=== PATIENT | male | born 1935 | race Caucasian/White ===

== ENCOUNTER 2017-11-13 17:59 | Emergency (ER) | payer MEDICARE, OTHER ==
[2017-11-13 18:15] VITALS: BP 162/79
--- NOTE | 2017-11-13 18:30 | UC ---
Skin Complaint HPI - HPI Summary HPI Summary: Patient states he has been having spontaneous nose bleeds for several weeks, with dripping blood, which respond to normal saline drops. He states also that he had a pimple in his neck which he scratched and has been bleeding recurrently. States that , who is accompanying him, has been changing the dressing but it has soaked the back of his shirt three times since this started. He is only taking aspirin. He states his PCP indicated it but there is no history of TIA, Afib, hypercoagulable states, CAD or stroke. 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 Onset/Duration: Sudden Onset, Lasting Days Skin Exposure Onset/Duration: Minutes Ago Timing: Intermittent Episodes Lasting: - several minutes Onset Severity: Moderate Current Severity: Moderate Pain Intensity: 0 Location: Discrete, Nose, Other - neck Aggravating Factor(s): Nothing Alleviating Factor(s): Other - compressive dressing Associated Signs & Symptoms: Positive: Negative - Allergy/Home Medications Allergies/Adverse Reactions: Allergies Allergy/AdvReac Type Severity Reaction Status Date / Time No Known Allergies Allergy Verified 11/13/17 18:15 Review of Systems Constitutional: Negative Skin: Other - bleeding pimple ENT: Epistaxis All Other Systems Reviewed And Are Negative: Yes PMH/Surg Hx/FS Hx/Imm Hx Previously Healthy: Yes - Surgical History Surgical History: Yes Surgery Procedure, Year, and Place: APPENDECTOMY-02/1969 - Social History Alcohol Use: Daily Alcohol Amount: 1 GLASS OF WINE AND 1 GLASS OF BEER DAILY Substance Use Type: None Smoking Status (MU): Never Smoked Tobacco Physical Exam Triage Information Reviewed: Yes Appearance: Well-Appearing, No Pain Distress, Well-Nourished Vital Signs: Initial Vital Signs Temp 97.5 F 11/13/17 18:08 Pulse 68 11/13/17 18:08 Resp 16 11/13/17 18:08 BP 162/79 11/13/17 18:08 Pulse Ox 97 11/13/17 18:08 Vital Signs Reviewed: Yes Eyes: Positive: Conjunctiva Clear ENT: Positive: Hearing grossly normal, Pharynx normal, TMs normal, Uvula midline - no nasal masses, blood vessels or blood, no discharge Neck: Positive: Supple, Nontender, No Lymphadenopathy Respiratory: Positive: Chest non-tender, Lungs clear, Normal breath sounds, No respiratory distress Cardiovascular: Positive: RRR, No Murmur, Pulses Normal, Brisk Capillary Refill Abdomen Description: Positive: Nontender, No Organomegaly, Soft Bowel Sounds: Positive: Present Skin Exam: Other - bleeding skin lesion on dorsum of right neck which responds to compression hemostasis Course/Dx - Course Course Of Treatment: patient instructed to stop aspirin, CBC, PT/PTT and comprehensive panel where drawn, will follow up results and f/u with PCP - Diagnoses Provider Diagnoses: Skin lesion. History of Epistaxis. Bleeding diathesis Discharge - Sign-Out/Discharge Documenting (check all that apply): Discharge - Discharge Plan Condition: Stable Disposition: HOME Patient Education Materials: Nosebleed (ED), Bleeding Disorders (ED) Referrals: Celestine Rubio MD [Primary Care Provider] - - Billing Disposition and Condition Condition: STABLE Disposition: HOME
[2017-11-14 13:26] LABS: ABS Basophils 0 10^3/ul (0-0.2); ABS Eosinophils 0.1 10^3/ul (0-0.6); ABS Monocytes 0.4 10^3/ul (0-0.8); ABS Nucleated RBC 0 10^3/ul; Eosinophil % 2.6 % (0-6); Hematocrit 40 % (42-52); Hemoglobin 14.3 g/dl (14.0-18.0); Mean Corpuscular HGB Conc 35 g/dl (31-36); Mean Corpuscular Hemoglobin 33 pg (27-31); Mean Corpuscular Volume 94 fL (80-94); Mean Platelet Volume 7.4 um3 (7.4-10.4); Nucleated Red Blood Cells % 0.1; Platelet Count 224 10^3/ul (150-450); Red Blood Count 4.28 10^6/ul (4.0-5.4); Red Cell Distribution Width 15 % (10.5-15); White Blood Count 5.5 10^3/ul (3.5-10.8)
[2017-11-14 13:34] LABS: INR 0.8 (0.77-1.02)
[2017-11-14 13:36] LABS: EGFR Non-African American 74.6 (>60)
== END 2017-11-13 19:11 | disposition home or self-care (01) ==
LOC: UCEAST 17:59
DX: L98.9 Disorder of the skin and subcutaneous tissue, unspecified (principal); D69.9 Hemorrhagic condition, unspecified; R04.0 Epistaxis; Z79.82 Long term (current) use of aspirin
CPT/HCPCS: 36415; 80053; 85025; 85610; 99212; G0463

== ENCOUNTER 2019-05-04 10:53 | Inpatient (IN) | payer MEDICARE, OTHER ==
--- OUTSIDE RECORDS SUMMARY | 2019-05-04 11:05 | XMS REPORT | Continuity of Care Document ---
:1935 External Reference #:[id number] Author Name Walt Christensen M.D. (transmitted by agent of provider Louisa Washington ) Address [address], [place] [address] Care Team Providers Name Role Phone Celestine Rubio MD - Endocrinology, Care Team Information Plant [employer] Diabetes & Metabolism Problems Active Problems Provider Date Muscle weakness Walt Christensen M.D. Onset: 07/29/2018 Altered mental status Walt Christensen M.D. Onset: 07/29/2018 Amnesia Walt Christensen M.D. Onset: 07/29/2018 Social History Type Date Description Comments Sex Unknown Tobacco Use Start: Unknown Never Smoked Cigarettes Smoking Status Reviewed: 04/03/19 Never Smoked Cigarettes ETOH Use Occasionally consumes alcohol Tobacco Use Start: Unknown Patient has never smoked Recreational Drug Use Denies Drug Use Allergies, Adverse Reactions, Alerts Description No Known Drug Allergies Medications Active Medications SIG Qnty Indications Ordering Provider Date Donepezil HCL 1 by mouth every 30tabs Walt Christensen, 10mg day M.D. 9 Tablets Tylenol 2 tablets every 4 150caps Koko Mckeon, 325mg hours as needed for N.P. 0 Capsules pain Cyanocobalamin Inject 1 mL every Unknown week by 0 1000mcg/ML Solution intramuscular route. Immunizations Description No Information Available Vital Signs Date Vital Result Comment 04/03/2019 11:51am Height 68 inches 5'8" Weight 140.00 lb Heart Rate 74 /min BP Systolic 118 mmHg BP Diastolic 82 mmHg BMI (Body Mass Index) 21.3 kg/m2 11/04/2018 8:51am Height 68 inches 5'8" Weight 150.00 lb Heart Rate 74 /min BP Systolic 136 mmHg BP Diastolic 82 mmHg BMI (Body Mass Index) 22.8 kg/m2 Results Description No Information Available Procedures Description No Information Available Medical Devices Description No Information Available Encounters Type Date Location Provider Dx Diagnosis Office Visit 11/04/2018 [facility] Humberto Barr1.82 Altered mental 8:45a [facility] status, unspecified R41.3 Other amnesia M62.81 Muscle weakness (generalized) Assessments Date Code Description Provider 04/03/2019 [email or web address] Other amnesia Walt Christensen M.D. 11/04/2018 R41.82 Altered mental status, unspecified Walt Christensen M.D. 11/04/2018 R41.3 Other amnesia Walt Christensen M.D. 11/04/2018 M62.81 Muscle weakness (generalized) Walt Christensen M.D. Plan of Treatment Future Appointment(s):05/30/2019 9:30 am - Koko Mckeon N.P. at [facility]04/03/2019 - Walt Christensen M.D.R41.3 Other amnesiaFollow up:Follow up in 2 months with Saleem. Functional Status Description No Information Available Mental Status Description No Information Available Referrals Description No Information Available
--- NOTE | 2019-05-04 11:24 | ED ---
Adult Trauma - HPI Summary HPI Summary: Patient is a 83 y/o M presenting to [facility] via EMS with caregiver and for fall and AMS. EMS had reported that the patient had an unwitnessed fall earlier this morning and had stated that there were concerns that the patient had visual disturbances and left-sided gazing. Caregiver in the room states that the patient has appeared to have increased confusion since last evening, 05/03/19 , around . Caregiver reports that the patient has some memory loss and slight confusion at baseline, but states that the patient had been unable to walk without assistance, identify and caregiver, and was confused how to perform basic tasks such as eating. In the room, patient denies CP, SOB, RECINOS. He claims no changes to vision. Patient is not on any blood thinners. On triage, pain is denied, nothing is noted to aggravate/alleviate Sx. Home medications and allergies are reviewed. - History of Current Complaint Chief Complaint: EDFall Stated Complaint: FALL W/VISION CHANGES PER EMS Time Seen by Provider: 05/04/19 10:56 Hx Obtained From: Patient, Family/Revenue Officer, EMS Mechanism of Injury: Fall Loss of Consciousness: unsure - unwitnessed fall Onset/Duration: Started Days Ago - confusion Current Severity: None Pain Intensity: 0 Pain Scale Used: 0-10 Numeric Aggravating Factor(s): Nothing Alleviating Factor(s): Nothing Associated Signs & Symptoms: Positive: Other: - positive - AMS, visual disturbance, confusion, left-sided gaze; negative - RECINOS. Negative: SOB, Chest Pain - Allergy/Home Medications Allergies/Adverse Reactions: Allergies Allergy/AdvReac Type Severity Reaction Status Date / Time No Known Allergies Allergy Verified 05/04/19 11:07 Home Medications: Home Medications Acetaminophen [Acetaminophen Extra Strength] 1 tab PO BID 05/04/19 [History Confirmed 05/04/19] Acetaminophen [Acetaminophen Extra Strength] 1,000 mg PO Q4H PRN 05/04/19 [ History Confirmed 05/04/19] Cyanocobalamin INJ * [Vitamin B12 INJ *] 1 ml IM MONTHLY 05/04/19 [History Confirmed 05/04/19] Donepezil HCL (NF) [Aricept (NF)] 1 tab PO DAILY 05/04/19 [History Confirmed ] PMH/Surg Hx/FS Hx/Imm Hx Endocrine/Hematology History: Denies: Hx Diabetes Cardiovascular History: Denies: Hx Hypertension, Hx Pacemaker/ICD History: Denies: Hx Renal Disease Sensory History: Reports: Hx Cataracts - BILATERAL, Hx Contacts or Glasses - GLASSES Denies: Hx Hearing Aid Opthamlomology History: Reports: Hx Cataracts - BILATERAL, Hx Contacts or Glasses - GLASSES Psychiatric History: Denies: Hx Panic Disorder - Surgical History Surgery Procedure, Year, and Place: APPENDIX. SKIN TUMORS REMOVED CHILD Hx Anesthesia Reactions: No Infectious Disease History: No Infectious Disease History: Reports: Hx Hepatitis - AT AGE 13 Denies: Traveled Outside the [place] in Last 30 Days - Social History Alcohol Use: Daily Alcohol Amount: 1 GLASS OF WINE AND 1 GLASS OF BEER DAILY Substance Use Type: Reports: None Smoking Status (MU): Never Smoked Tobacco Review of Systems Eyes: Other - positive - left sided gaze and visual disturbances Negative: Chest Pain Negative: Shortness Of Breath Musculoskeletal: Other - positive - fall Neurological: Other - positive - confusion Negative: Headache All Other Systems Reviewed And Are Negative: Yes Physical Exam - Summary Physical Exam Summary: VITAL SIGNS: Reviewed. GENERAL: Patient is a well-developed and nourished male who is lying comfortable in the stretcher. Patient is not in any acute respiratory distress. HEAD AND FACE: No signs of trauma. No ecchymosis, hematomas or skull depressions. No sinus tenderness. EYES: PERRLA, EOMI x 2, No injected conjunctiva, no nystagmus. EARS: Hearing grossly intact. Ear canals and tympanic membranes are within normal limits. MOUTH: Oropharynx within normal limits. NECK: Supple, trachea is midline, no adenopathy, no JVD, no carotid bruit, no c- spine tenderness, neck with full ROM. CHEST: Symmetric, no tenderness at palpation. LUNGS: Clear to auscultation bilaterally. No wheezing or crackles. CVS: Regular rate and rhythm, S1 and S2 present, no murmurs or gallops appreciated. ABDOMEN: Soft, non-tender. No signs of distention. No rebound, no guarding, and no masses palpated. Bowel sounds are normal. EXTREMITIES: FROM in all major joints, no edema, no cyanosis or clubbing. NEURO: Alert but disoriented. GCS 15. SKIN: Dry and warm. Triage Information Reviewed: Yes Vital Signs On Initial Exam: Initial Vitals Temp Pulse Resp BP Pulse Ox 98.5 F 78 28 140/75 94 05/04/19 11:03 05/04/19 11:03 05/04/19 11:03 05/04/19 11:03 05/04/19 11:03 Vital Signs Reviewed: Yes - [place] Coma Scale Best Eye Response: 4 - Spontaneous Best Motor Response: 6 - Obeys Commands Best Verbal Response: 5 - Oriented Coma Scale Total: 15 Diagnostics - Vital Signs Vital Signs Temp Pulse Resp BP Pulse Ox 05/04/19 11:03 98.5 F 78 28 140/75 94 - Laboratory Result Diagrams: 05/05/19 04:15 05/05/19 04:15 Lab Statement: Any lab studies that have been ordered have been reviewed, and results considered in the medical decision making process. - Radiology CXR Radiology Interpretation Completed By: Radiologist Summary of Radiographic Findings: CXR IMPRESSION: NO EVIDENCE FOR ACTIVE CARDIOPULMONARY DISEASE. THIS REPORT WAS REVIEWED BY DR. MEJIAS LUMBAR SPINE X-RAY Radiology Interpretation Completed By: Radiologist Summary of Radiographic Findings: LUMBAR X-RAY IMPRESSION: NO DISPLACED FRACTURE BY RADIOGRAPH. THIS REPORT WAS REVIEWED BY DR. MEJIAS THORACIC SPINE X-RAY Radiology Interpretation Completed By: Radiologist Summary of Radiographic Findings: THORACIC SPINE X-RAY IMPRESSION: No displaced thoracic spine fracture by radiograph. THIS REPORT WAS REVIEWED BY DR. MEJIAS - CT CERVICAL SPINE CT CT Interpretation Completed By: Radiologist Summary of CT Findings: CERVICAL SPINE CT IMPRESSION: No fracture of the cervical spine is noted. THIS REPORT WAS REVIEWED BY DR. MEJIAS BRAIN CT CT Interpretation Completed By: Radiologist Summary of CT Findings: BRAIN CT. There is a parenchymal hematoma in the left occipital lobe measuring 4.8 x 4.8 x 3.4 cm. No midline shift is noted. Extrinsic compression on the occipital horn of the left lateral. ventricle is noted. No definite subarachnoid hemorrhage or subdural hemorrhage is noted. The right hemisphere is unremarkable. Central and cortical atrophy is noted. No obvious. intraventricular blood is noted. IMPRESSION: Left-sided intraparenchymal hematoma in the left occipital lobe as described. above. THIS REPORT WAS REVIEWED BY DR. MEJIAS - EKG 1129 Cardiac Rate: NL - rate of 78 BPM EKG Rhythm: Sinus Rhythm Summary of EKG Findings: EKG showed NSR with rate of 78 BPM, no STEMI. ED physician has reviewed and interpreted this EKG. Adult Trauma Course/Dx - Course Assessment/Plan: Patient is a 83 y/o M presenting to [facility] via EMS with caregiver and for fall and AMS. EMS had reported that the patient had an unwitnessed fall earlier this morning and had stated that there were concerns that the patient had visual disturbances and left-sided gazing. Caregiver in the room states that the patient has appeared to have increased confusion since last evening, 05/03/19, around . Caregiver reports that the patient has some memory loss and slight confusion at baseline, but states that the patient had been unable to walk without assistance, identify and caregiver, and was confused how to perform basic tasks such as eating. In the room, patient denies CP, SOB, RECINOS. He claims no changes to vision. Patient is not on any blood thinners. Blood work without any significant abnormality except for glucose of 114, total bili is 1.8, AST 65, total protein is 6.2. Head CT impression: Left- sided intraparenchymal hematoma in the left occipital lobe. CT C-spine impression: No fracture of cervical spine noted. Lumbar spine x-ray impression : No displaced fractures. Thoracic Spine impression: no displaced thoracic spine fractures. At this point, I discussed my physical exam, findings and test results with Dr. Wesley from neurosurgery who came and assessed the patient. After his assessment, he recommends no surgical intervention at this time. He recommends admission to the hospitalist for further workup and management. Therefore, I discussed my physical exam and findings with Dr. Casiano from the hospitalist services who accepted the patient for admission. - Diagnoses Provider Diagnoses: Hemorrhagic cerebrovascular accident (CVA) - Physician Notifications Discussed Care Of Patient With: Sha Wesley Time Discussed With Above Provider: 12:35 Instructed by Provider To: Other - 1235 - Patient's case was discussed with Dr. Wesley, he will come to ED to evaluate the patient. 1310 - Dr. Wesley evaluated the patient and reports no need for surgical intervention at present, he recommends admission and agrees to consult on the patient. 1355 - Patient's case was discussed with Dr. Casiano, Dr. Casiano accepts for admission. - Critical Care Time Critical Care Time: 75-104 min Discharge ED - Sign-Out/Discharge Documenting (check all that apply): Patient Departure - admit Patient Received Moderate/Deep Sedation with Procedure: No - Discharge Plan Condition: Fair Disposition: ADMITTED TO [facility] - Billing Disposition and Condition Condition: FAIR Disposition: Admitted to [facility] - Attestation Statements Document Initiated by Marlyne: Yes Documenting Scribe: UYEN BUI Provider For Whom Marlyne is Documenting (Include Credential): NOÉ MEJIAS MD Scribe Attestation: IUYEN, scribed for NOÉ MEJIAS MD on 05/05/19 at 0844. Scribe Documentation Reviewed: Yes Provider Attestation: The documentation as recorded by the UYEN mcintyre accurately reflects the service I personally performed and the decisions made by me, NOÉ MEJIAS MD Status of Scribe Document: Viewed
[2019-05-04 11:41] LABS: ABS Lymphocytes 0.6 10^3/ul (1.0-4.8); ABS Monocytes 0.4 10^3/ul (0-0.8); ABS Neutrophils 8.4 10^3/ul (1.5-7.7); Eosinophil % 0.1 %; Hematocrit 42 % (42-52); Hemoglobin 14.9 g/dL (14.0-18.0); Lymphocyte % 6.2 %; Mean Corpuscular HGB Conc 35 g/dL (31-36); Mean Corpuscular Hemoglobin 34 pg (27-31); Mean Corpuscular Volume 95 fL (80-94); Platelet Count 208 10^3/uL (150-450); Red Blood Count 4.46 10^6 /uL (4.18-5.48); Red Cell Distribution Width 13 % (10-15); White Blood Count 9.4 10^3/uL (3.5-10.8)
[2019-05-04 11:56] LABS: ALT 65 U/L (7-52); AST 37 U/L (13-39); Albumin 4.2 g/dL (3.2-5.2); Albumin/Globulin Ratio 2.1 (1-3); Alkaline Phosphatase 42 U/L (34-104); Anion Gap 5 mmol/L (2-11); BUN/Creatinine Ratio 22.2 (8-20); Blood Urea Nitrogen 16 mg/dL (6-24); CO2 Carbon Dioxide 29 mmol/L (22-32); Calcium 9.6 mg/dL (8.6-10.3); Chloride 103 mmol/L (101-111); Creatine Kinase 175 U/L (10-223); EGFR African American 125.5 (>60); EGFR Non-African American 103.8 (>60); Glucose 114 mg/dL (70-100); Magnesium 2.1 mg/dL (1.9-2.7); Potassium 4.1 mmol/L (3.5-5.0); Sodium 137 mmol/L (135-145); Total Protein 6.2 g/dL (6.4-8.9)
[2019-05-04 12:22] LABS: Acetaminophen < 15 mcg/mL; Alcohol < 10 mg/dL (<10)
[2019-05-04 12:35] LABS: TSH (Thyroid Stimulating Horm) 1.35 mcIU/mL (0.34-5.60)
[2019-05-04] MEDS ORDERED: Ondansetron INJ* 2 MG/ML VIAL IV PRN (13:52)
[2019-05-04] MEDS ORDERED: Acetaminophen TAB* 325 MG PO PRN (13:52)
[2019-05-04] MEDS ORDERED: hydrALAZINE IV* 20 MG/ML VIAL IV SLOW PU PRN (14:49)
[2019-05-04] MEDS ORDERED: levETIRAcetam 1000MG IVPREMIX* 1,000 MG/100 ML BAG IVPB ONE (15:00)
[2019-05-04 15:41] LABS: Activated Partial Thrombo Time 33.4 seconds (26.0-38.0); INR 0.98 (0.82-1.09)
--- NOTE | 2019-05-04 16:12 | HP ---
CC: Dr. Celestine Rubio; Dr. Walt Christensen; Dr. Sha Wesley * ADMISSION HISTORY AND PHYSICAL: DATE OF ADMISSION: 05/04/19 PRIMARY CARE PROVIDER: Dr. Celestine Rubio. MY ATTENDING WHILE IN THE HOSPITAL: Dr. Sunitha Casiano.* (DICTATED BY ALVIN PAEZ) OUTPATIENT NEUROLOGIST: Dr. Walt Christensen. CONSULTING NEUROSURGEON: Dr. Sha Wesley. CHIEF COMPLAINT: Fall. HISTORY OF PRESENT ILLNESS: Mr. Cabral is an 83-year-old male with past medical history significant for rapidly progressive dementia, B12 deficiency, BPH, who presents to the emergency department after last night he was noted to have a significant worsening in his mental state, level of alertness and gait. He normally has a bent gait with normal stride length, but the last night he was noted to have an increasingly shuffling gait with needing the use of his walker and significant increase in help from his live-in aide. The patient does not complain of any other symptoms except for weight loss for several months despite having a normal appetite. The patient has been worked up outpatient for a rapidly progressive dementia through his neurologist. The patient has been complaining of diplopia occasionally, particularly after his cataract surgery and this has not previously been evaluated in his outpatient neurology records. The patient did have an MRI of brain showing volume loss, particularly in mesial temporal lobe in February 2018. The patient had an EEG showing diffuse slowing as well at that time. The patient this morning was going to the bathroom by himself with his aide nearby and was noted to fall, no abnormal movements were noted, but he did lose control of his bowel or bladder. It is unclear whether the patient hit his head; however, the patient was transported to the emergency department and found to have a large intraparenchymal hemorrhage on the left side. The patient's case was discussed with Dr. Sha Wesley, who recommended further imaging of the spine at admission to the hospital and repeat CT in the morning. The patient in the emergency department is feeling relatively well. He is more lethargic than his baseline per his aide and . He denies chest pain, shortness of breath, dizziness except on persistent deep breathing. The patient denies fevers, chills, dysuria, feelings of urinary retention, or other abnormal findings. Due to concern for intraparenchymal hemorrhage, we were asked to evaluate the patient for admission to the hospital. PAST MEDICAL HISTORY: B12 deficiency, dementia, hyperlipidemia, BPH, hypertension. PAST SURGICAL HISTORY: Appendectomy. MEDICATIONS: 1. Tylenol 1000 mg p.o. q.4 hours as needed. 2. Tylenol 500 mg p.o. b.i.d. 3. Vitamin B12 1000 mcg IM monthly. 4. Donepezil 10 mg p.o. daily. ALLERGIES: No known drug allergies. FAMILY HISTORY: The patient's father had emphysema and high blood pressure. The patient's mother had high blood pressure and breast cancer. SOCIAL HISTORY: The patient is a lifelong nonsmoker. The patient drinks daily alcohol. The patient denies illicit drug use. 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 He was working and traveling around the world up until approximately 1 year ago. The patient is and has no children. The patient's surrogate decision maker will be his , Gracie Cabral. REVIEW OF SYSTEMS: A 14-point review of systems was reviewed and was negative except as above in the HPI. PHYSICAL EXAMINATION GENERAL: The patient is an 83-year-old male who appears stated age and is sitting comfortably in the bed, in no acute distress. VITAL SIGNS: Temperature 98.5, pulse rate 72, respiratory rate 16, oxygen saturation 96% on room air, blood pressure 145/83. HEENT: Head: Normocephalic, atraumatic. Sclerae anicteric. No conjunctival injection. Nasal mucosa moist. Oral mucosa moist. No pharyngeal erythema, discharge, or exudate. NECK: Supple, nontender. No lymphadenopathy. No carotid bruits auscultated. No JVD. RESPIRATORY: Clear to auscultation bilaterally. No wheezes, rales, or rhonchi. Good air exchange bilaterally. CARDIAC: Regular rate and rhythm. No clicks, murmurs, gallops, or rubs. Pulses are 2+ in the bilateral dorsalis pedis, posterior tibialis and radial areas. ABDOMEN: Soft, nontender, nondistended. Bowel sounds present and normoactive in all 4 quadrants. No hepatosplenomegaly. There are no abdominal bruits auscultated. No hepatojugular reflux. GENITOURINARY: No suprapubic or CVA tenderness. NEUROLOGIC: The patient is not markedly cooperative with neuro exam; however, he appears to have significant vision loss to his right side and significantly favors his gaze to the left. No other cranial nerve deficits. The patient is diffusely weak, but has no other focal deficits. The patient has fasciculations in the bilateral upper arms and significant muscle wasting in his body, particularly in his hands. PSYCHIATRIC: Very pleasant and cooperative. Alert and oriented to self. SKIN: Clean, dry and intact. No rashes. DIAGNOSTIC STUDIES/LAB DATA: White blood cell count 9.4, hemoglobin 14.9, platelet count 208. Sodium 138, potassium 4.1, chloride 103, carbon dioxide 29 , anion gap 5, BUN 16, creatinine 0.72, glucose 114, lactic acid 0.9, calcium 9.6, magnesium 2.1. Bilirubin 1.0, AST 37, ALT 65, alkaline phosphatase 42. Ammonia 31, creatinine kinase 175. Troponin I 0.00. Albumin 4.2, globulin 2.0 , Tylenol less than 15, and serum alcohol less than 10. TSH less than 1.35. Studies: EKG shows normal sinus rhythm, no ST segment elevation or depression, no hypertrophy or enlargement, normal axis, rate of 78, QTc of 436. No prior exam to compare. Chest x-ray shows no acute cardiopulmonary abnormality. Brain CT shows left- sided intraparenchymal hematoma in the left occipital lobe. No midline shift. Extreme compression of the occipital horn of the lateral ventricle is noted. No definite subarachnoid hemorrhage or subdural hemorrhage is noted. Cervical spine CT on 05/04/19 shows no fracture of the cervical spine. Lumbar spine x-ray shows no displaced fracture. Thoracic spine x-ray shows no displaced thoracic spine fracture. ASSESSMENT AND PLAN: Impression: Mr. Cabral is an 83-year-old male with past medical history significant for B12 deficiency and dementia, who presented to the emergency department with fall with intraparenchymal hemorrhage after approximately 12 hours of worsening lethargy and gait. The patient will be admitted to the hospital for monitoring, neurosurgery consultation and repeat CT scan in morning. 1. Posttraumatic intraparenchymal hemorrhage. The patient is likely predisposed to hemorrhage due to his brain volume loss. The patient had no obvious head trauma, but does have a large hematoma in his brain. The patient' s case has been discussed with Dr. Sha Weslye of Neurosurgery, who recommends observation, studies as above and did not recommend seizure prophylaxis. The patient will be admitted to the ICU for close monitoring. We will have repeat CT scan in the morning to assess for expansion of the hematoma. The patient is not on any blood thinners. The patient will be placed on seizure prophylaxis per further recommendation of Neurosurgery. The patient will also have MRI of his brain with and without contrast to assess for underlying mass and this will need to be repeated outpatient through his outpatient neurologist to assess for underlying mass and possible amyloid angiopathy. The patient will be checked for coagulopathy. We will continue to attempt to keep the patient's blood pressure under 140. 2. Rapidly progressive dementia, B12 deficiency. The patient's B12 level will be updated, it is unclear if his dementia is related to B12 deficiency that was rapid onset, it is rather atypical for Alzheimer's dementia. Continue workup outpatient given the patient's muscle wasting and fasciculations. EMG may be indicated to fully clarify the underlying cause of this. 3. Benign prostatic hyperplasia. Urinalysis is pending. It is possible, the patient's worsening gait and mentation over the last 24 hours is associated with urinary tract infection, this will be treated if present. 4. FEN: The patient will have a regular unrestricted diet and no fluids. 5. Disposition: Observation. 6. Code status: The patient would like to be a full code at this time. TIME SPENT: Approximately 60 minutes was spent on the admission of this patient , 30 of which were spent [id number] with the patient obtaining history and physical and discussing treatment plan. This plan has been discussed with my attending, Dr. Sunitha Casiano, and she is in agreement. ALVIN PAEZ [id number]/[facility] #: [id number] [place]
--- NOTE | 2019-05-04 16:12 | CONS ---
CONSULTATION NOTE: DATE OF CONSULT: 05/04/19 HISTORY OF PRESENT ILLNESS: The patient is a very pleasant 83-year-old gentleman, who was brought to the emergency room after reported to be noticed to have altered mental status. The patient has history of dementia for the last 3 years and over the last day he developed more confusion. The patient was reported to have a fall while he was in the bathroom without definite loss of consciousness. The patient denies any neck pain or any back pain. He denies any weakness of his upper or lower extremities. He denies any urinary or GI incontinence, although according to his caregiver he has been having incontinence episodes in the past. 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 He is , lives with his and they have no children. PAST MEDICAL HISTORY: Diabetes, cataract, history of hepatitis as a child. PAST SURGICAL HISTORY: Appendectomy, skin tumors removal as a child. MEDICATIONS: At home, the patient was on: 1. Acetaminophen. 2. B12. 3. Donepezil. ALLERGIES: No known drug allergies. FAMILY HISTORY: Noncontributory. SOCIAL HISTORY: Tobacco, negative. Alcohol, 1 glass of wine or a glass of beer daily. Recreational drug use, negative. PHYSICAL EXAM: The patient is not in any acute distress. He is awake, alert. He is oriented x1. His pupils are equal and reactive. Cranial nerves II through XII are grossly intact with the exception of right homonymous hemianopsia. Motor 4-5/5 in all extremities. Sensory grossly intact to light touch. Deep tendon reflexes 1+ bilaterally. No clonus. No Babinski. The patient has atrophy of his interossei muscles and the patient's reports that he may have history of myelopathy as he has difficulty buttoning his shirt. The patient has no tenderness to palpation of the thoracic or lumbar spine. He has free range of motion of the cervical spine. DIAGNOSTIC STUDIES: The patient had a CT scan of the brain revealing left occipital intracranial hemorrhage without significant mass effect. No midline shift. There is mild compression of the occipital horn. The patient had a CT scan of the cervical spine that did not reveal any evidence of fracture and he had also plain x-rays of his thoracic and lumbar spine that per Radiology report did not reveal any fracture. ASSESSMENT: The patient is a very pleasant 83-year-old gentleman with episodes of altered mental status with CT scan findings consistent with a left occipital intracranial hemorrhage . PLAN: The patient at this point is doing quite well. We discussed the CT scan findings in extent with the patient's and caregiver. This may represent a lobar hemorrhage possibly associated with amyloid angiopathy given the patient' s age. Nevertheless, an MRI of the brain may be done to further exclude any other etiologies of the hemorrhage. Regarding his clinical condition and the possible diagnosis, I think that conservative treatment would be the best option at this time. We discussed the risks with the patient's and also discussed the possibility for need for surgical procedure if his hemorrhage expands and his neurological condition deteriorates. The patient's will think about the level of treatment should surgical intervention need. Case was discussed also with Dr. Torres from [facility], who also recommends conservative treatment without any further imaging other than serial CT scans and MRI of the brain. The patient may benefit from maintaining systolic blood pressure less than [address] scans of the brain. The patient will be admitted to the ICU by Internal Medicine. I appreciate Internal Medicine care. Thank you for allowing us to participate in the care of this patient. Please do not hesitate to contact our office in case you have any further questions or concerns regarding the care of this patient. [id number]/[facility] #: [id number] [place]
[2019-05-04] MEDS ORDERED: Gadoteridol* (CONTRAST) 279.3 MG/ML 10 ML IV ONE (20:51)
[2019-05-04] MEDS ORDERED: Ropinirole TAB* 0.5 MG TAB PO ONE (21:00)
[2019-05-05] MEDS: levETIRAcetam 1000MG IVPREMIX* 1,000 MG/100 ML BAG IVPB SCH ×2 (02:23→16:15)
[2019-05-05 04:35] LABS: ABS Monocytes 0.6 10^3/ul (0-0.8); ABS Neutrophils 7.6 10^3/ul (1.5-7.7); Eosinophil % 0.1 %; Hematocrit 43 % (42-52); Hemoglobin 15.2 g/dL (14.0-18.0); Lymphocyte % 10.6 %; Mean Corpuscular HGB Conc 35 g/dL (31-36); Mean Corpuscular Hemoglobin 34 pg (27-31); Mean Corpuscular Volume 96 fL (80-94); Mean Platelet Volume 7.3 fL (7.4-10.4); Nucleated Red Blood Cells % 0.1; Platelet Count 215 10^3/uL (150-450); Red Blood Count 4.53 10^6 /uL (4.18-5.48); Red Cell Distribution Width 14 % (10-15); White Blood Count 9.2 10^3/uL (3.5-10.8)
[2019-05-05 04:53] LABS: BUN/Creatinine Ratio 21.9 (8-20); Calcium 9.4 mg/dL (8.6-10.3); EGFR African American 143.8 (>60); EGFR Non-African American 118.9 (>60); Magnesium 1.9 mg/dL (1.9-2.7); Potassium 3.9 mmol/L (3.5-5.0)
[2019-05-05 06:54] LABS: Urine Appearance Clear; Urine Bilirubin Negative (Negative); Urine Blood Negative (Negative); Urine Color Yellow; Urine Glucose Negative (Negative); Urine Ketones 2+ (Negative); Urine Nitrite Negative (Negative); Urine Protein Negative (Negative); Urine Specific Gravity 1.026 (1.010-1.030); Urine Urobilinogen Negative (Negative)
[2019-05-05 07:24] LABS: Urine Benzodiazepine Screen None Detected (None Detect); Urine Opiates Screen None Detected (None Detect)
[2019-05-05] MEDS: hydrALAZINE IV* 20 MG/ML VIAL IV SLOW PU PRN ×2 (08:07→20:15)
[2019-05-05] MEDS ORDERED: Donepezil TAB* 5 MG PO SCH (09:00)
--- NOTE | 2019-05-05 09:21 | PN ---
Progress Note - Progress Note Date of Service: 05/05/19 Note: Patient has no acute changes over night, had some confusion, but was at baseline. He completed MRI with and without contrast that showed left parietal hemorrhage with out an underline lesion. As recommend patient will need serial head CT scans to evaluate changes with the bleed. Neurosurgery will continue to monitor patient and follow up with CT scan results.
--- NOTE | 2019-05-05 16:14 | PN ---
Subjective Date of Service: 05/05/19 Interval History: Patient seen and examined. Answers questions, mostly states "I'm ok", but difficulty following commands. at bedside. Discussed POC in detail. Chart reviewed. No further events noted. Objective Active Medications: Acetaminophen (Tylenol Tab*) 650 mg PO Q6H PRN PRN Reason: MILD PAIN or TEMP > 100.4 Donepezil HCl (Aricept Tab*) 10 mg PO DAILY [facility] Last Admin: 05/05/19 08:10 Dose: Not Given Hydralazine HCl (Apresoline Iv*) 5 mg IV SLOW PU Q4H PRN PRN Reason: SYSTOLIC BP GREATER THAN: Last Admin: 05/05/19 08:07 Dose: 5 mg Levetiracetam (Keppra Iv Premix*) 1,000 mg in 100 mls @ 400 mls/hr IVPB Q12H [facility] Last Admin: 05/05/19 02:23 Dose: 400 mls/hr Ondansetron HCl (Zofran Inj*) 4 mg IV Q6H PRN PRN Reason: NAUSEA Vital Signs - 8 hr 05/05/19 05/05/19 05/05/19 08:15 08:31 08:46 Temperature Pulse Rate 77 83 80 Respiratory 24 25 23 Rate Blood Pressure 142/79 147/85 126/81 (mmHg) O2 Sat by Pulse 98 99 97 Oximetry 05/05/19 05/05/19 05/05/19 09:00 09:01 09:16 Temperature Pulse Rate 93 83 80 Respiratory 23 26 23 Rate Blood Pressure 149/77 137/72 (mmHg) O2 Sat by Pulse 95 93 96 Oximetry 05/05/19 05/05/19 05/05/19 09:31 09:46 10:00 Temperature Pulse Rate 103 102 79 Respiratory 31 27 25 Rate Blood Pressure 146/102 143/90 132/64 (mmHg) O2 Sat by Pulse 93 95 98 Oximetry 05/05/19 05/05/19 05/05/19 10:30 10:31 10:45 Temperature Pulse Rate 86 87 79 Respiratory 23 20 25 Rate Blood Pressure 134/83 119/83 145/77 (mmHg) O2 Sat by Pulse 99 95 97 Oximetry 05/05/19 05/05/19 05/05/19 11:00 11:15 11:30 Temperature Pulse Rate 76 79 74 Respiratory 21 21 23 Rate Blood Pressure 138/75 132/76 125/79 (mmHg) O2 Sat by Pulse 97 97 97 Oximetry 05/05/19 05/05/19 05/05/19 11:45 12:00 12:15 Temperature 98.7 F Pulse Rate 81 77 78 Respiratory 26 25 21 Rate Blood Pressure 141/75 134/78 133/65 (mmHg) O2 Sat by Pulse 94 94 93 Oximetry 05/05/19 05/05/19 05/05/19 12:30 12:45 13:00 Temperature Pulse Rate 77 87 76 Respiratory 24 23 21 Rate Blood Pressure 132/74 123/71 134/68 (mmHg) O2 Sat by Pulse 93 94 92 Oximetry 05/05/19 05/05/19 05/05/19 13:02 13:15 13:30 Temperature Pulse Rate 77 88 80 Respiratory 21 25 22 Rate Blood Pressure 130/78 141/66 (mmHg) O2 Sat by Pulse 93 94 94 Oximetry 05/05/19 05/05/19 05/05/19 13:45 14:00 14:01 Temperature Pulse Rate 72 79 78 Respiratory 19 23 20 Rate Blood Pressure 143/68 124/79 (mmHg) O2 Sat by Pulse 94 95 95 Oximetry 05/05/19 05/05/19 05/05/19 14:15 14:30 14:46 Temperature Pulse Rate 79 69 76 Respiratory 19 18 25 Rate Blood Pressure 106/61 131/80 122/81 (mmHg) O2 Sat by Pulse 93 95 95 Oximetry 05/05/19 05/05/19 15:00 15:15 Temperature Pulse Rate 74 70 Respiratory 21 18 Rate Blood Pressure 137/73 140/65 (mmHg) O2 Sat by Pulse 95 95 Oximetry Oxygen Devices in Use Now: Nasal Cannula Appearance: Lethargic, arousable Eyes: No Scleral Icterus, PERRLA Ears/Nose/Mouth/Throat: - - poor dentition Neck: NL Appearance and Movements; NL JVP, Trachea Midline Respiratory: Symmetrical Chest Expansion and Respiratory Effort, Clear to Auscultation Cardiovascular: NL Sounds; No Murmurs; No JVD, RRR Abdominal: NL Sounds; No Tenderness; No Distention Extremities: No Edema, No Clubbing, Cyanosis Skin: No Rash or Ulcers Neurological: - - confused, demtia Nutrition: - - NPO Result Diagrams: 05/05/19 04:15 05/05/19 04:15 Microbiology and Other Data: Microbiology 05/04/19 15:35 Nasal Screen MRSA (PCR) - Final Nasal Mrsa Not Detected Diagnostic Imaging: Patient Name: AILYN MOYA Medical Record#: [id number] Ordering Physician: Medardo ESQUIVEL Acct.#: [id number] : 1935 Age: 83 Sex: M Location: [facility]ARE UNIT Exam Date: 05/05/19 0800 ADM Status: ADM Alex Order Information: CT BRAIN WO Accession Number: [id number] CPT: 88311 INDICATION: Head injury. COMPARISON: May 04, 2019 head C TECHNIQUE: Contiguous axial sections of the brain were obtained from the skull base to the vertex without contrast. FINDINGS: The left occipital lobe hematoma, with surrounding vasogenic edema, is similar in size (measures up to 4.4 cm). Intraventricular decompression is redemonstrated with increased layering blood products in the occipital horns the lateral ventricles. Subarachnoid blood products predominate along the posterior right temporal sulcus. The escalante-white matter differentiation is unchanged. There is no new cerebral edema. Cerebral volume loss is contrast generalized ventriculomegaly and sulcal prominence. The ventricular caliber is unchanged. The basal cisterns are patent. The globes and orbits are grossly unremarkable. The paranasal sinuses and mastoid air cells are predominantly well aerated. IMPRESSION: 1. Left occipital lobe hematoma, with surrounding vasogenic edema, is grossly unchanged in size. There is no significant mass effect or midline shift. 2. There is increased redistribution of blood products into the ventricles and subarachnoid space. The ventricles are unchanged in caliber. Patient Name: AILYN MOYA Medical Record#: [id number] Ordering Physician: Medardo ESQUIVEL Acct.#: [id number] : 1935 Age: 83 Sex: M Location: [facility] Exam Date: 05/04/19 1444 ADM Status: ADM Alex Order Information: MRI BRAIN W/WO Accession Number: [id number] CPT: 33287 ADDENDUM Addendum created by Karl Lawrence MD on 05/04/2019 11:10:22 PM EDT THIS REPORT CONTAINS FINDINGS THAT MAY BE CRITICAL TO PATIENT CARE. The findings were verbally communicated via telephone conference with Dr. Wick at 11:10 PM EDT on 05/04/2019. The findings were acknowledged and understood. Initial report created on 05/04/2019 10:52:39 PM EDT PROCEDURE INFORMATION: Exam: MR Head Without and With Contrast Exam date and time: 05/04/2019 9:22 PM Clinical history: 83 years old, male; Injury or trauma; Initial encounter; Concussion / head injury; Consciousness not specified; Injury date: 05/04/19; Patient HX: PT had an unwitnessed fall this am. Staff were concerned b/c PT was having visual disturbances and gazing to the left. Pmhx of dementia. Brain bleed noted on CT; Additional info: Brain bleeding TECHNIQUE: Imaging protocol: MR of the head without and with intravenous contrast. Contrast material: PROHANCE; Contrast volume: 10 ml; Contrast route: IV; COMPARISON: CT BRAIN WO 05/04/2019 11:42:00 AM, MRI BRAIN W/WO 02/14/2018 2:08 PM FINDINGS: Brain: Approximately 4.1 cm area of intraparenchymal hemorrhage within the left parietal lobe. Expected restricted diffusion within the region of known intracranial hemorrhage in the left occipital lobe. No additional areas of restricted diffusion. Scattered bilateral subarachnoid hemorrhage and small to moderate degree of intraventricular hemorrhage. Generalized ventriculomegaly is unchanged from prior examinations. Nonspecific T2/FLAIR hyperintensities of the periventricular and deep subcortical white matter, most likely secondary to chronic small vessel ischemic change. No midline shift. No areas of abnormal enhancement. Bones/joints: Unremarkable. Orbits: Unremarkable. IMPRESSION: 1. Approximately 4.1 cm area of intraparenchymal hemorrhage within the left parietal lobe. Although no definite abnormal enhancement is visualized on this examination, underlying mass cannot be excluded. Recommend followup MRI brain with and without contrast following resolution of hemorrhage. 2. Small to moderate degree of intraventricular hemorrhage. 3. Trace foci of subarachnoid hemorrhage. To contact [facility] with a general question: Operations Center - [phone] For direct physician to physician contact: Physician Hotline - [phone] This report is only to be considered final once signed by the Provider(s) as displayed in the "<Electronically Signed by >" field (s). Absence of a signature indicates the report is in a draft status and still needs to be finalized. In the event this document was created by someone other than the signing Provider, the individual initiating the document will be listed in the "Entered by:" or "Dictated by:" kellogg. 1 of 3 Assess/Plan/Problems-Billing Assessment: - Patient Problems (1) Intraparenchymal hemorrhage of brain Code(s): I61.9 - NONTRAUMATIC INTRACEREBRAL HEMORRHAGE, UNSPECIFIED SNOMED Code(s): 380110515 Comment: - Non-traumatic per admission notes - No hx of AC use - Dr. Wesley consulted, MRI and repeat CT as above - No new bleeding or expansion noted on repeat CT from this morning - Continue NPO until cleared by NS (2) Rapidly progressive dementia Code(s): F03.90 - UNSPECIFIED DEMENTIA WITHOUT BEHAVIORAL DISTURBANCE SNOMED Code(s): 870471820 Comment: - Follows with neurology as outpatient - B12 level 714 - May consider inpatient neurology consultation if mentation continues to be poor - Supportive care (3) DVT prophylaxis Code(s): Z29.9 - ENCOUNTER FOR PROPHYLACTIC MEASURES, UNSPECIFIED SNOMED Code( s): 192748956 Comment: - SCDs given bleeding (4) Full code status Code(s): Z78.9 - OTHER SPECIFIED HEALTH STATUS SNOMED Code(s): 405979968 Status and Disposition: Inpatient, critical/guarded. Critical Care Time 60 minutes
--- NOTE | 2019-05-05 21:16 | EEG ---
ELECTROENCEPHALOGRAPHY: DATE OF STUDY: 05/05/19 ORDERED BY: ALVIN Calzada. DATE READ: Read by me on 05/05/19. MEDICATIONS: Keppra, Aricept, Tylenol, Apresoline, Zofran. CLINICAL STATE: Awake and drowsy. REPORT: The background consisted of mixed frequency slowing in the delta and theta range without any discernible organization or clear anterior-posterior voltage gradient. There was no posterior domin ant rhythm, but there is a slow waking consistent frequency of 7 Hz, which was symmetric and showed n ormal reactivity. Anteriorly, there was an expected lower voltage, mixed fast frequencies. There was some more state of frequencies that were seen in the right and left central region independently. There were greater delta slowing diffusely seen during the recording. Attenuation of the occipital r hythm accompanied drowsiness. The hyperventilation and photic stimulation were not performed. Singl e electrode EKG showed normal sinus rhythm with a rate of 70 beats per minute. CLINICAL IMPRESSION: This is an abnormal awake and drowsy EEG due to diffuse slowing of the backgrou nd. There were no epileptiform discharges or electrographic seizures. These findings are suggestive of a [id number] nonspecific diffuse encephalopathy. [id number]/[facility] #: [id number]
[2019-05-06] MEDS: levETIRAcetam 1000MG IVPREMIX* 1,000 MG/100 ML BAG IVPB SCH ×2 (03:11→14:34)
--- NOTE | 2019-05-06 10:23 | PN ---
Subjective Date of Service: 05/06/19 Interval History: Mr. Cabral is feeling well this morning. He offers no complaints. Denies pain. He is not sure if he slept well overnight. His visited this morning, but he did not remember seeing her. Denies N/V. Nursing reports stable neuro checks without focal deficits. He has not been up ambulating. Family History: Unchanged from Admission Social History: Unchanged from Admission Past Medical History: Unchanged from Admission Objective Active Medications: Acetaminophen (Tylenol Tab*) 650 mg PO Q6H PRN MILD PAIN or TEMP > 100.4 Donepezil HCl (Aricept Tab*) 10 mg PO BEDTIME TOMMY Hydralazine HCl (Apresoline Iv*) 5 mg IV SLOW PU Q4H PRN SYSTOLIC BP GREATER THAN: Levetiracetam (Keppra Iv Premix*) 1,000 mg in 100 mls @ 400 mls/hr IVPB Q12H TOMMY Influenza Virus Vaccine (Fluarix Quad 3774-2229 Syr) 0.5 ml IM .ONCE ONE Ondansetron HCl (Zofran Inj*) 4 mg IV Q6H PRN NAUSEA Vital Signs - 8 hr 05/06/19 05/06/19 05/06/19 02:31 03:00 03:01 Temperature Pulse Rate 77 99 91 Respiratory 16 24 27 Rate Blood Pressure 148/84 127/78 (mmHg) O2 Sat by Pulse 93 97 99 Oximetry 05/06/19 05/06/19 05/06/19 03:30 03:50 04:00 Temperature 99.3 F Pulse Rate 81 Respiratory 23 18 Rate Blood Pressure 113/73 (mmHg) O2 Sat by Pulse 94 Oximetry 05/06/19 05/06/19 05/06/19 04:01 04:09 04:30 Temperature Pulse Rate 75 78 71 Respiratory 20 23 17 Rate Blood Pressure 126/58 128/55 (mmHg) O2 Sat by Pulse 94 94 93 Oximetry 05/06/19 05/06/19 05/06/19 05:00 05:01 05:30 Temperature Pulse Rate 64 73 Respiratory 24 15 20 Rate Blood Pressure 135/65 124/65 (mmHg) O2 Sat by Pulse 96 96 Oximetry 05/06/19 05/06/19 05/06/19 06:00 06:31 06:54 Temperature Pulse Rate 81 84 Respiratory 23 25 20 Rate Blood Pressure 143/66 127/99 (mmHg) O2 Sat by Pulse 91 95 Oximetry 05/06/19 05/06/19 05/06/19 07:00 07:02 07:30 Temperature Pulse Rate 91 82 Respiratory 24 18 22 Rate Blood Pressure 135/72 (mmHg) O2 Sat by Pulse 96 95 Oximetry 05/06/19 05/06/19 05/06/19 08:00 08:29 09:00 Temperature 98.3 F Pulse Rate 73 72 Respiratory 19 16 19 Rate Blood Pressure 132/66 (mmHg) O2 Sat by Pulse 93 95 Oximetry 05/06/19 05/06/19 05/06/19 09:12 09:31 09:38 Temperature Pulse Rate 73 74 Respiratory 19 19 18 Rate Blood Pressure 126/95 131/73 (mmHg) O2 Sat by Pulse 95 94 Oximetry 05/06/19 10:00 Temperature Pulse Rate 77 Respiratory 23 Rate Blood Pressure (mmHg) O2 Sat by Pulse 95 Oximetry Oxygen Devices in Use Now: None Appearance: Elderly male laying in bed in NAD Ears/Nose/Mouth/Throat: Mucous Membranes Moist Neck: NL Appearance and Movements; NL JVP, Trachea Midline Respiratory: Symmetrical Chest Expansion and Respiratory Effort, Clear to Auscultation Cardiovascular: NL Sounds; No Murmurs; No JVD, RRR Abdominal: NL Sounds; No Tenderness; No Distention Extremities: No Edema Neurological: - - Oriented to self, pleasant and cooperative Lines/Tubes/Other Access: Clean, Dry and Intact Peripheral IV Result Diagrams: 05/05/19 04:15 05/05/19 04:15 Assess/Plan/Problems-Billing Assessment: Mr. Cabral is an 83 yo M with PMH of dementia with rapid decline, B12 deficiency, and BPH; who presented to the ED with AMS and gait abnormalities, resulting in a fall, and was found to have an ICH. - Patient Problems (1) Intraparenchymal hemorrhage of brain Code(s): I61.9 - NONTRAUMATIC INTRACEREBRAL HEMORRHAGE, UNSPECIFIED Comment: - Fall prior to admission, but reportedly without head trauma, and it sounds as though symptoms started prior to fall - No history of AC use - MRI on admission showing 4.1 cm hemorrhage in left parietal lobe - Appreciate Neurosurgery consult; recommends Keppra x7 days, f/u CT in 1mo and f/u MRI with and w/o contrast in 3mo; BP control and keep Na >135 - Repeat CT this morning shows no change in bleed - Passed bedside swallow eval, so official swallow eval d/c'd - Change neuro checks to q4h - Continue Keppra for seizure prophylaxis (day 2) (2) Rapidly progressive dementia Code(s): F03.90 - UNSPECIFIED DEMENTIA WITHOUT BEHAVIORAL DISTURBANCE Comment : - Follows with Dr. Christensen - Supportive care (3) DVT prophylaxis Code(s): Z29.9 - ENCOUNTER FOR PROPHYLACTIC MEASURES, UNSPECIFIED Comment: - SCDs only in the setting of ICH (4) Full code status Code(s): Z78.9 - OTHER SPECIFIED HEALTH STATUS Comment: Status and Disposition: Inpatient for ICH. Likely transfer out of ICU today. Anticipate d/c home vs [facility] when medically stable. Attending: Pamela Whipple
--- NOTE | 2019-05-06 10:48 | PN ---
Progress Note - Progress Note Date of Service: 05/06/19 SOAP: Subjective: []Patient in ICU. No events ON Objective: []VSS, Afebrile Opens eyes to verbal, Ox1-2 , AUBRIE, Face symmetric Gilberto well, Follows commands Sensory grossly intact to light touch. Limited exam due to mental status. Assessment: [] 83 yom ICH Plan: [] Monitor VS, Neurochecks CT this am w/out significant changes BP control Consider tx to regular floor Follow up in office in [address] head Repeat MRI w/wo contrast in 3 months May follow up with Neurology or with us in office. Appreciate IM care. Todd Wesley MD
[2019-05-06] MEDS: hydrALAZINE IV* 20 MG/ML VIAL IV SLOW PU PRN (12:20)
[2019-05-06] MEDS: Donepezil TAB* 5 MG PO SCH (20:14)
[2019-05-07] MEDS: levETIRAcetam 1000MG IVPREMIX* 1,000 MG/100 ML BAG IVPB SCH ×2 (03:03→17:02)
[2019-05-07 07:17] LABS: BUN/Creatinine Ratio 34.5 (8-20); Calcium 9.3 mg/dL (8.6-10.3); EGFR African American 161.1 (>60); EGFR Non-African American 133.2 (>60); Potassium 3.6 mmol/L (3.5-5.0)
[2019-05-07] MEDS ORDERED: Influenza VAC *QUAD* 2019-20* 0.5 ML SYRINGE IM ONE (09:00)
--- NOTE | 2019-05-07 10:05 | PN ---
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 He presented with an acute left parietal lobe. I have reviewed the EHR. Aliyn Moya has no insight into his current situation owing to his dementia. He is day 4 after a left posterior parietal lobe intracerebral hemorrhage. He presented with mental alertness, gait. The following morning he fell, no description of a head injury. He was found to have the left parietal lobe intra cranial hemorrhage. He had initially worsening of the hemorrhage and subsequent stabilization. Today, he is sitting comfortably in a cardiac chair listening to the music of Benigno Tavarez. He is disoriented place and person. He seems to recognize me, but stated my name was "John" - I have known Ailyn Moya for 30 years. He notes he has a new tremor of his left arm. Otherwise, he has no symptoms. He also has no insight. I oriented him and explained his presentation/condition - 5 mins later he forgot all of this. Active Problems: Active Problems Intraparenchymal hemorrhage of brain (Acute) I61.9 - Fall prior to admission, but reportedly without head trauma, and it sounds as though symptoms started prior to fall - No history of AC use - MRI on admission showing 4.1 cm hemorrhage in left parietal lobe - Appreciate Neurosurgery consult; recommends Keppra x7 days, f/u CT in 1mo and f/u MRI with and w/o contrast in 3mo; BP control and keep Na >135 - Repeat CT this morning shows no change in bleed - Passed bedside swallow eval, so official swallow eval d/c'd - Change neuro checks to q4h - Continue Keppra for seizure prophylaxis (day 2/7) B12 deficiency (Chronic) E53.8 BPH without urinary obstruction (Chronic) N40.0 DVT prophylaxis (Chronic) Z29.9 - SCDs only in the setting of ICH Essential hypertension (Chronic) I10 Full code status (Chronic) Z78.9 Hyperlipidemia (Chronic) E78.5 Kyphosis (acquired) (postural) (Chronic) M40.00 Low back pain (Chronic) M54.5 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 Christensen - Supportive care Current Medications: Current Medications Acetaminophen (Tylenol Tab*) 650 mg PO Q6H PRN PRN Reason: MILD PAIN or TEMP > 100.4 Donepezil HCl (Aricept Tab*) 10 mg PO BEDTIME TOMMY Last Admin: 05/06/19 20:14 Dose: 10 mg Hydralazine HCl (Apresoline Iv*) 5 mg IV SLOW PU Q4H PRN PRN Reason: SYSTOLIC BP GREATER THAN: Last Admin: 05/06/19 12:20 Dose: 5 mg Levetiracetam (Keppra Iv Premix*) 1,000 mg in 100 mls @ 400 mls/hr IVPB Q12H TOMMY Last Admin: 05/07/19 03:03 Dose: 400 mls/hr Ondansetron HCl (Zofran Inj*) 4 mg IV Q6H PRN PRN Reason: NAUSEA - Review of Systems Constitutional Symptoms: No: Fever Pulmonary: Negative: Cough, Sputum Cardiology: Negative: Chest Pain, Shortness of Breath Gastroenterology: Negative: Abdominal Pain Neurology: Positive: Change in Memory, Hx of Stroke\\TIA Negative: Headache, Change in Vision, Diplopia, Dizziness, Numbness\\ Paresthesiae, Hx of Seizures Home Medications: Home Medications Medication Instructions Recorded Confirmed Type Acetaminophen [Acetaminophen Extra 1 tab PO BID 05/04/19 05/04/19 History Strength] Acetaminophen [Acetaminophen Extra 1,000 mg PO Q4H PRN 05/04/19 05/04/19 History Strength] Cyanocobalamin INJ * [Vitamin B12 1 ml IM MONTHLY 05/04/19 05/04/19 History INJ *] Donepezil HCL (NF) [Aricept (NF)] 1 tab PO DAILY 05/04/19 05/04/19 History Allergies: Allergies Allergy/AdvReac Type Severity Reaction Status Date / Time No Known Allergies Allergy Verified 05/04/19 11:07 Objective - Vital Signs Vital Signs: Vital Signs 05/06/19 05/06/19 05/06/19 10:00 10:57 13:20 Temperature 97.3 F Pulse Rate 77 68 Respiratory 23 20 Rate Blood Pressure 145/64 139/66 (mmHg) O2 Sat by Pulse 95 98 Oximetry 0905/06/19 05/06/19 15:15 18:57 19:35 Temperature 98.4 F 98.6 F Pulse Rate 88 84 Respiratory 16 18 16 Rate Blood Pressure 128/85 134/58 (mmHg) O2 Sat by Pulse 98 97 Oximetry 05/06/19 05/07/19 05/07/19 22:57 01:16 03:30 Temperature 99.4 F 98.4 F Pulse Rate 96 84 Respiratory 24 18 Rate Blood Pressure 142/61 136/49 130/63 (mmHg) O2 Sat by Pulse 95 97 Oximetry - Intake and Output Intake and Output: Intake & Output 05/04/19 05/05/19 05/06/19 05/07/19 11:59 11:59 11:59 11:59 Intake Total 440 270 100 Output Total 550 100 100 Balance -110 170 0 Weight 140 lb 126 lb 1.671 oz 125 lb 10.616 oz Intake: IV Fluids 200 70 NS to Maintain IV Patency 70 IVPB 200 100 Keppra 100 NS to Maintain IV Patency 200 Oral 240 0 0 Output: Urine 550 100 100 Other: Estimated Void Medium Large # Voids 1 0 1 ADLs: Meal Record Start: 05/04/19 16: 04 Freq: 09,13,18 Status: Inactive Protocol: Created 05/04/19 16:04 System (Rec: 05/04/19 16:04 System ICU-C14) Document 05/04/19 18:00 [id number] (Rec: 05/04/19 18:56 BRC0571 ICU-C25) Document 05/05/19 09:00 UVR6162 (Rec: 05/05/19 12:54 ADH9801 ICU-C07) Document 05/05/19 13:00 EYG8469 (Rec: 05/05/19 15:29 GWV0742 ICU-C07) Document 05/05/19 18:00 NHH7559 (Rec: 05/05/19 19:24 NBA7609 ICU-M22) Document 05/06/19 08:29 DJD4874 (Rec: 05/06/19 08:29 MJL2846 ICU-C06) ADLs: Meal Record Start: 05/06/19 10: 57 Freq: DAILY@0900,1400,1800 Status: Active Protocol: Created 05/06/19 10:57 VBP4090 (Rec: 05/06/19 10:57 RMM0619 ICU-C06) Document 05/06/19 14:00 VZL0299 (Rec: 05/06/19 14:31 IPE9909 TELE-C07) Intake and Output Start: 05/04/19 11: 07 Freq: Status: Active Protocol: Created 05/04/19 11:07 System (Rec: 05/04/19 11:07 System EDRM-C09) Intake and Output Start: 05/04/19 16: 04 Freq: Q1HR Status: Inactive Protocol: Created 05/04/19 16:04 System (Rec: 05/04/19 16:04 System ICU-C14) Document 05/04/19 16:59 XLD0384 (Rec: 05/04/19 17:00 QVZ3913 ICU-M28) Document 05/04/19 18:00 YOH4058 (Rec: 05/04/19 18:56 YCD2942 ICU-C25) Document 05/04/19 23:33 KCO7949 (Rec: 05/04/19 23:33 ISL5420 ICU-C06) Document 05/05/19 00:00 ALT0364 (Rec: 05/05/19 01:03 IWP6038 ICU-C06) Document 05/05/19 01:00 AMX7345 (Rec: 05/05/19 01:03 YGH3650 ICU-C06) Document 05/05/19 02:00 BUL3262 (Rec: 05/05/19 03:25 FPZ3099 ICU-C06) Document 05/05/19 04:00 EFF8565 (Rec: 05/05/19 04:21 GZY8686 ICU-C06) Document 05/05/19 06:43 MKM1786 (Rec: 05/05/19 06:43 DYB9199 ICU-C06) Document 05/05/19 08:00 APU4057 (Rec: 05/05/19 08:34 OHT7727 ICU-C07) Document 05/05/19 12:00 IBG5137 (Rec: 05/05/19 12:53 SDN2924 ICU-C07) Document 05/05/19 15:00 NBZ9099 (Rec: 05/05/19 15:28 JIL8884 ICU-C07) Document 05/05/19 20:00 UIK1898 (Rec: 05/05/19 20:39 RTD6451 ICU-C06) Document 05/05/19 21:00 RJF0785 (Rec: 05/05/19 22:23 NFU0447 ICU-C06) Document 05/05/19 22:10 BJV0895 (Rec: 05/05/19 22:32 UKT5397 ICU-C06) Document 05/05/19 23:03 VTY5610 (Rec: 05/05/19 23:03 XER9692 ICU-C14) Document 05/06/19 00:00 OMK6258 (Rec: 05/06/19 00:04 TYS1938 ICU-M22) Document 05/06/19 00:55 UUD0953 (Rec: 05/06/19 00:55 XWY0220 ICU-M22) Document 05/06/19 02:00 VVC4776 (Rec: 05/06/19 02:07 CRD7741 ICU-M22) Document 05/06/19 03:00 QWA8649 (Rec: 05/06/19 03:04 ERL0219 ICU-C06) Document 05/06/19 04:00 AHP2254 (Rec: 05/06/19 04:02 ICA2509 ICU-C06) Document 05/06/19 04:58 CHI4899 (Rec: 05/06/19 04:58 XAV3757 ICU-M22) Document 05/06/19 06:00 UHU3009 (Rec: 05/06/19 06:02 VPU3765 ICU-M22) Document 05/06/19 07:00 QZG1214 (Rec: 05/06/19 07:01 YDR3827 ICU-C06) Document 05/06/19 07:07 RFK6545 (Rec: 05/06/19 07:07 YFL1491 ICU-C06) Document 05/06/19 08:29 SRP5967 (Rec: 05/06/19 08:29 HQP7731 ICU-C06) Document 05/06/19 09:38 NVM6990 (Rec: 05/06/19 09:38 RJX9760 ICU-C06) Intake and Output Start: 05/06/19 10: 57 Freq: DAILY@0600,1400,2200 Status: Active Protocol: Created 05/06/19 10:57 FNA9893 (Rec: 05/06/19 10:57 EDQ1818 ICU-C06) Document 05/06/19 14:00 LVB4140 (Rec: 05/06/19 14:32 MVZ4445 TELE-C07) Document 05/06/19 22:00 OFC4784 (Rec: 05/06/19 22:17 SLS4531 TELE-C09) Document 05/07/19 05:15 (Rec: 05/07/19 05:16 TELE-M21) - Physical Exam General Physical Exam Comment: He is awake, alert and pleasantly conversational. He remains dignified and charming. However, he confabulates and maintains a facade. He has some long-term memory - though he is not able to express this well spontaneously. He has a poor short term memory. Gait - he was able to stand up and walk across the guallpa with a walker. I removed the walker and he walked with a stoop (this is normal for him). Finally, he demonstrated a negative Romberg test. General: No Cyanosis, No Anemia, No Jaundice, No Clubbing Eye Exam: bilateral: EOMI - normal, Vision Field - normal Skin: Normal: Rash Lungs and Chest: Yes: Chest Expansion Full, Chest Expansion Symetrica, Percussion Note Resonant, Vessicular Breath Sounds. No: Crackles, Wheezes Heart Rate and Rhythm: Regular Additional Cardiovascular: Yes: Normal Heart Sounds. No: Heart Murmur, Pedal Edema Abdominal Exam: Yes: Soft. No: Distention, Abdominal Mass, Hepatomegaly, Abdominal Tenderness, Guarding, Rebound Tenderness, Bowel Sounds Present - Extremities Cranial Nerves II-XII Intact: Yes Limbs: Normal Power, Normal Coordination - alternating movements/finger nose., Abnormal Gait - small steps, though independent - Neuro Orientation: Person Psychiatric: Normal Speech: Normal Results - Results Lab Results: Laboratory Results - last 24 hr 05/07/19 06:06 Sodium 140 Potassium 3.6 Chloride 105 Carbon Dioxide 24 Anion Gap 11 BUN 20 Creatinine 0.58 L Est GFR ( Amer) 161.1 Est GFR (Non-Af Amer) 133.2 BUN/Creatinine Ratio 34.5 H Glucose 83 Calcium 9.3 Radiology Results: Patient Name: AILYN MOYA Medical Record#: [id number] Ordering Physician: Medardo ESQUIVEL Acct.#: [id number] : 1935 Age: 83 Sex: M Location: [facility] Exam Date: 05/04/19 1444 ADM Status: ADM Alex Order Information: MRI BRAIN W/WO Accession Number: [id number] CPT: 17151 ADDENDUM Addendum created by Karl Lawrence MD on 05/04/2019 11:10:22 PM EDT THIS REPORT CONTAINS FINDINGS THAT MAY BE CRITICAL TO PATIENT CARE. The findings were verbally communicated via telephone conference with Dr. Wick at 11:10 PM EDT on 05/04/2019. The findings were acknowledged and understood. Initial report created on 05/04/2019 10:52:39 PM EDT PROCEDURE INFORMATION: Exam: MR Head Without and With Contrast Exam date and time: 05/04/2019 9:22 PM Clinical history: 83 years old, male; Injury or trauma; Initial encounter; Concussion / head injury; Consciousness not specified; Injury date: 05/04/19; Patient HX: PT had an unwitnessed fall this am. Staff were concerned b/c PT was having visual disturbances and gazing to the left. Pmhx of dementia. Brain bleed noted on CT; Additional info: Brain bleeding TECHNIQUE: Imaging protocol: MR of the head without and with intravenous contrast. Contrast material: PROHANCE; Contrast volume: 10 ml; Contrast route: IV; COMPARISON: CT BRAIN WO 05/04/2019 11:42:00 AM, MRI BRAIN W/WO 02/14/2018 2:08 PM FINDINGS: Brain: Approximately 4.1 cm area of intraparenchymal hemorrhage within the left parietal lobe. Expected restricted diffusion within the region of known intracranial hemorrhage in the left occipital lobe. No additional areas of restricted diffusion. Scattered bilateral subarachnoid hemorrhage and small to moderate degree of intraventricular hemorrhage. Generalized ventriculomegaly is unchanged from prior examinations. Nonspecific T2/FLAIR hyperintensities of the periventricular and deep subcortical white matter, most likely secondary to chronic small vessel ischemic change. No midline shift. No areas of abnormal enhancement. Bones/joints: Unremarkable. Orbits: Unremarkable. IMPRESSION: 1. Approximately 4.1 cm area of intraparenchymal hemorrhage within the left parietal lobe. Although no definite abnormal enhancement is visualized on this examination, underlying mass cannot be excluded. Recommend followup MRI brain with and without contrast following resolution of hemorrhage. 2. Small to moderate degree of intraventricular hemorrhage. 3. Trace foci of subarachnoid hemorrhage. [facility] Patient Name:AILYN MOYA MR: [id number] : 1935 [facility] ([facility] Facility ID #[id number]) <Electronically signed by Karl Lawrence MD in [place]>05/04/192309 Dictated by: Karl Lawrence MD Dictated Date/Time:05/04/192121 Transcribed Date/Time: 05/04/192121 Copy to: Celestine Rubio MD; Syed Fonseca MD; Sha Wesley MD; Medardo ESQUIVEL PROCEDURE INFORMATION: Exam: MR Head Without and With Contrast Exam date and time: 05/04/2019 9:22 PM Clinical history: 83 years old, male; Injury or trauma; Initial encounter; Concussion / head injury; Consciousness not specified; Injury date: 05/04/19; Patient HX: PT had an unwitnessed fall this am. Staff were concerned b/c PT was having visual disturbances and gazing to the left. Pmhx of dementia. Brain bleed noted on CT; Additional info: Brain bleeding TECHNIQUE: Imaging protocol: MR of the head without and with intravenous contrast. Contrast material: PROHANCE; Contrast volume: 10 ml; Contrast route: IV; COMPARISON: CT BRAIN WO 05/04/2019 11:42:00 AM, MRI BRAIN W/WO 02/14/2018 2:08 PM FINDINGS: Brain: Approximately 4.1 cm area of intraparenchymal hemorrhage within the left parietal lobe. Expected restricted diffusion within the region of known intracranial hemorrhage in the left occipital lobe. No additional areas of restricted diffusion. Scattered bilateral subarachnoid hemorrhage and small to moderate degree of intraventricular hemorrhage. Generalized ventriculomegaly is unchanged from prior examinations. Nonspecific T2/FLAIR hyperintensities of the periventricular and deep subcortical white matter, most likely secondary to chronic small vessel ischemic change. No midline shift. No areas of abnormal enhancement. Bones/joints: Unremarkable. Orbits: Unremarkable. IMPRESSION: 1. Approximately 4.1 cm area of intraparenchymal hemorrhage within the left parietal lobe. Although no definite abnormal enhancement is visualized on this examination, underlying mass cannot be excluded. Recommend followup MRI brain with and without contrast following resolution of hemorrhage. 2. Small to moderate degree of intraventricular hemorrhage. 3. Trace foci of subarachnoid hemorrhage. <Electronically signed by Karl Lawrence MD in [place]> 05/04/192251 Dictated By: Karl Lawrence MD Dictated Date/Time: 05/04/192121 Transcribed Date/Time: 05/04/192121 Patient Name: AILYN MOYA Medical Record#: [id number] Ordering Physician: Kerri Navarro NP Acct.#: [id number] : 1935 Age: 83 Sex: M Location: [facility] Exam Date: 05/06/19812 ADM Status: ADM IN Order Information: CT BRAIN WO Accession Number: [id number] CPT: 14556 INDICATION: Head injury. COMPARISON: There are no relevant prior studies available for comparison. TECHNIQUE: Contiguous axial sections of the brain were obtained from the skull base to the vertex without contrast. FINDINGS: The left occipital hematoma surrounding vasogenic edema are grossly unchanged. There is no new mass effect. The slightly redistributed intraventricular and subarachnoid blood products have not increased. No new hemorrhagic focus is identified. The escalante-white matter differentiation is grossly maintained. There is mild periventricular hypoattenuation without mass effect which is nonspecific. The prominent ventricles are unchanged in caliber. The basal cisterns are patent. The globes and orbits are symmetric. The paranasal sinuses and mastoid air cells are predominantly well aerated. IMPRESSION: 1. Stable multicompartment hemorrhage with no significant mass effect. 2. Stable ventricular caliber. <Electronically signed by Cory Blankenship MD in [place]> 05/06/19854 Dictated By: Cory Blankenship MD Dictated Date/Time: 05/06/19850 Transcribed Date/Time: 05/06/19850 Copy to: EKG Report: Rate 79 sinus rhythm CO 172 QTc 436 QRS 43 normal Other Results/Reports: Electroencephalogram Report Patient: AILYN MOYA /Age: 01 1935 83 Medical Record#: [id number] Admission Date: 05/05/19 Provider: Deirdre Kim MD ELECTROENCEPHALOGRAPHY: DATE OF STUDY: 05/05/19 ORDERED BY: ALVIN Calzada. DATE READ: Read by me on 05/05/19. MEDICATIONS: Keppra, Aricept, Tylenol, Apresoline, Zofran. CLINICAL STATE: Awake and drowsy. REPORT: The background consisted of mixed frequency slowing in the delta and theta range without any discernible organization or clear anterior-posterior voltage gradient. There was no posterior dominant rhythm, but there is a slow waking consistent frequency of 7 Hz, which was symmetric and showed normal reactivity. Anteriorly, there was an expected lower voltage, mixed fast frequencies. There was some more state of frequencies that were seen in the right and left central region independently. There were greater delta slowing diffusely seen during the recording. Attenuation of the occipital rhythm accompanied drowsiness. The hyperventilation and photic stimulation were not performed. Single electrode EKG showed normal sinus rhythm with a rate of 70 beats per minute. CLINICAL IMPRESSION: This is an abnormal awake and drowsy EEG due to diffuse slowing of the background. There were no epileptiform discharges or electrographic seizures. These findings are suggestive of a mild-to- moderate nonspecific diffuse encephalopathy. [id number]/[facility] #: [id number] <Electronically signed by Deirdre Kim MD> 05/06/19 0907 Deirdre Kim MD Dictated Date/Time: 05/05/19 1506 Transcribed Date/Time 05/05/192057 Copy to: This report is only to be considered final once signed by the Provider(s) as displayed in the "<Electronically Signed by >" field (s). Absence of a signature indicates the report is in a draft status and still needs to be finalized. In the event this document was created by someone other than the signing Provider, the individual initiating the document will be listed in the "Entered by:" or "Dictated by:" kellogg. 1 of 2 Assessment - Problem List Assessment: Patient Problems Intraparenchymal hemorrhage of brain (Acute) B12 deficiency (Chronic) BPH without urinary obstruction (Chronic) DVT prophylaxis (Chronic) Essential hypertension (Chronic) Full code status (Chronic) Hyperlipidemia (Chronic) Kyphosis (acquired) (postural) (Chronic) Low back pain (Chronic) Rapidly progressive dementia (Chronic) Plan: Intraparenchymal hemorrhage of brain (Acute) I have reviewed the chart and Dr. Sha Wesley's notes for neurosurgery. His acute alteration in mental status has improved. He remains demented and unable to account for himself. However, he walks safely independently and with a walker when directed. He is stable - his Romberg test was negative. I will have PT/OT see him today. He and his have just moved to [facility] in [facility]. I think he may be safe for discharge directly to this facility. However, I will see the impression of PT/OT. Dementia is his major challenge at present. There is no clear cause for his intracranial hemorrhage - though he has a history of controlled hypertension and dyslipidemia. It is possible B12 deficiency (Chronic) BPH without urinary obstruction (Chronic) DVT prophylaxis (Chronic) Essential hypertension (Chronic) Full code status (Chronic) Hyperlipidemia (Chronic) Kyphosis (acquired) (postural) (Chronic) Low back pain (Chronic) Rapidly progressive dementia (Chronic) Gracie Moya [phone] is in jehovah's witness - I will speak with her later. I explained to Ailyn Clementashwini his illness x 2 - he didn't recall either explanation after 5 mins.
[2019-05-07] MEDS: Donepezil TAB* 5 MG PO SCH (21:56)
--- NOTE | 2019-05-08 01:12 | PN ---
Progress Note - Progress Note Date of Service: 05/07/19 Note: Patient seen earlier this am. On regular floor. No events ON. Neuro exam stable, AAOx1-2, Gilberto FC. No need for surgical intervention at this point. Will be available if needed. Todd Wesley MD
[2019-05-08] MEDS: levETIRAcetam 1000MG IVPREMIX* 1,000 MG/100 ML BAG IVPB SCH (02:54)
--- NOTE | 2019-05-08 08:28 | PN ---
Subjective - Subjective Reason for Note: Discharge Note History: Contingent discharge summary He is in no distress and describes no pain or discomfort. He is disoriented place and time. He can't give an account of himself. He is dignified and cooperative. I reviewed the PT report. Active Problems: Active Problems Intraparenchymal hemorrhage of brain (Acute) I61.9 - Fall prior to admission, but reportedly without head trauma, and it sounds as though symptoms started prior to fall - No history of AC use - MRI on admission showing 4.1 cm hemorrhage in left parietal lobe - Appreciate Neurosurgery consult; recommends Keppra x7 days, f/u CT in 1mo and f/u MRI with and w/o contrast in 3mo; BP control and keep Na >135 - Repeat CT this morning shows no change in bleed - Passed bedside swallow eval, so official swallow eval d/c'd - Change neuro checks to q4h - Continue Keppra for seizure prophylaxis (day 2/7) B12 deficiency (Chronic) E53.8 BPH without urinary obstruction (Chronic) N40.0 DVT prophylaxis (Chronic) Z29.9 - SCDs only in the setting of ICH Essential hypertension (Chronic) I10 Full code status (Chronic) Z78.9 Hyperlipidemia (Chronic) E78.5 Kyphosis (acquired) (postural) (Chronic) M40.00 Low back pain (Chronic) M54.5 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 Christensen - Supportive care Current Medications: Current Medications Acetaminophen (Tylenol Tab*) 650 mg PO Q6H PRN PRN Reason: MILD PAIN or TEMP > 100.4 Donepezil HCl (Aricept Tab*) 10 mg PO BEDTIME [facility] Last Admin: 05/07/19 21:56 Dose: 10 mg Levetiracetam (Keppra Iv Premix*) 1,000 mg in 100 mls @ 400 mls/hr IVPB Q12H [facility] Last Admin: 05/08/19 02:54 Dose: 400 mls/hr Home Medications: Home Medications Medication Instructions Recorded Confirmed Type Acetaminophen [Acetaminophen Extra 1 tab PO BID 05/04/19 05/04/19 History Strength] Acetaminophen [Acetaminophen Extra 1,000 mg PO Q4H PRN 05/04/19 05/04/19 History Strength] Cyanocobalamin INJ * [Vitamin B12 1 ml IM MONTHLY 05/04/19 05/04/19 History INJ *] Donepezil HCL (NF) [Aricept (NF)] 1 tab PO DAILY 05/04/19 05/04/19 History Allergies: Allergies Allergy/AdvReac Type Severity Reaction Status Date / Time No Known Allergies Allergy Verified 05/04/19 11:07 Objective - Vital Signs Vital Signs: Vital Signs 05/07/19 05/07/19 05/07/19 11:15 15:15 19:29 Temperature 97.8 F 98.8 F 98.7 F Pulse Rate 76 91 100 Respiratory 16 18 16 Rate Blood Pressure 134/47 141/75 123/90 (mmHg) O2 Sat by Pulse 98 96 Oximetry 05/07/19 05/07/19 05/08/19 20:00 23:23 03:26 Temperature 98.6 F 98.5 F Pulse Rate 78 87 77 Respiratory 18 20 20 Rate Blood Pressure 146/67 139/67 (mmHg) O2 Sat by Pulse 96 97 Oximetry - Intake and Output Intake and Output: Intake & Output 05/05/19 05/06/19 05/07/19 05/08/19 11:59 11:59 11:59 11:59 Intake Total 440 270 105 0 Output Total 550 100 100 600 Balance -110 170 5 -600 Weight 126 lb 1.671 oz 125 lb 10.616 oz Intake: IV Fluids 200 70 NS to Maintain IV Patency 70 IVPB 200 100 Keppra 100 NS to Maintain IV Patency 200 Oral 240 0 5 0 Output: Urine 550 100 100 600 Other: Estimated Void Medium Large Medium # Voids 1 0 1 3 ADLs: Meal Record Start: 05/04/19 16: 04 Freq: ,,18 Status: Inactive Protocol: Created 05/04/19 16:04 System (Rec: 05/04/19 16:04 System ICU-C14) Document 05/04/19 18:00 [id number] (Rec: 05/04/19 18:56 [id number] ICU-C25) Document 05/05/19 09:00 [id number] (Rec: 05/05/19 12:54 [id number] ICU-C07) Document 05/05/19 13:00 [id number] (Rec: 05/05/19 15:29 [id number] ICU-C07) Document 05/05/19 18:00 [id number] (Rec: 05/05/19 19:24 [id number] ICU-M22) Document 05/06/19 08:29 [id number] (Rec: 05/06/19 08:29 [id number] ICU-C06) ADLs: Meal Record Start: 05/06/19 10: 57 Freq: DAILY@0900,1400,1800 Status: Active Protocol: Created 05/06/19 10:57 [id number] (Rec: 05/06/19 10:57 [id number] ICU-C06) Document 05/06/19 14:00 [id number] (Rec: 05/06/19 14:31 HHP9075 TELE-C07) Document 05/07/19 09:00 [id number] (Rec: 05/07/19 11:28 ADH5895 TELE-M21) Document 05/07/19 14:00 [id number] (Rec: 05/07/19 14:24 [id number] TELE-C09) Intake and Output Start: 05/04/19 11: 07 Freq: Status: Active Protocol: Created 05/04/19 11:07 System (Rec: 05/04/19 11:07 System [id number]-C09) Intake and Output Start: 05/04/19 16: 04 Freq: Q1HR Status: Inactive Protocol: Created 05/04/19 16:04 System (Rec: 05/04/19 16:04 System ICU-C14) Document 05/04/19 16:59 [id number] (Rec: 05/04/19 17:00 [id number] ICU-M28) Document 05/04/19 18:00 [id number] (Rec: 05/04/19 18:56 [id number] ICU-C25) Document 05/04/19 23:33 [id number] (Rec: 05/04/19 23:33 [id number] ICU-C06) Document 05/05/19 00:00 [id number] (Rec: 05/05/19 01:03 [id number] ICU-C06) Document 05/05/19 01:00 [id number] (Rec: 05/05/19 01:03 [id number] ICU-C06) Document 05/05/19 02:00 IJX0220 (Rec: 05/05/19 03:25 OKZ1096 ICU-C06) Document 05/05/19 04:00 NUQ8699 (Rec: 05/05/19 04:21 [id number] ICU-C06) Document 05/05/19 06:43 [id number] (Rec: 05/05/19 06:43 [id number] ICU-C06) Document 05/05/19 08:00 [id number] (Rec: 05/05/19 08:34 [id number] ICU-C07) Document 05/05/19 12:00 [id number] (Rec: 05/05/19 12:53 [id number] ICU-C07) Document 05/05/19 15:00 GTY8199 (Rec: 05/05/19 15:28 [id number] ICU-C07) Document 05/05/19 20:00 [id number] (Rec: 05/05/19 20:39 [id number] ICU-C06) Document 05/05/19 21:00 [id number] (Rec: 05/05/19 22:23 [id number] ICU-C06) Document 05/05/19 22:10 GNI4051 (Rec: 05/05/19 22:32 SYB7421 ICU-C06) Document 05/05/19 23:03 [id number] (Rec: 05/05/19 23:03 TKP9670 ICU-C14) Document 05/06/19 00:00 AGL0563 (Rec: 05/06/19 00:04 [id number] ICU-M22) Document 05/06/19 00:55 [id number] (Rec: 05/06/19 00:55 [id number] ICU-M22) Document 05/06/19 02:00 WOY1536 (Rec: 05/06/19 02:07 [id number] ICU-M22) Document 05/06/19 03:00 TBU4915 (Rec: 05/06/19 03:04 TDR7080 ICU-C06) Document 05/06/19 04:00 IYO2721 (Rec: 05/06/19 04:02 [id number] ICU-C06) Document 05/06/19 04:58 [id number] (Rec: 05/06/19 04:58 VYP4552 ICU-M22) Document 05/06/19 06:00 ZPD1410 (Rec: 05/06/19 06:02 KEH7966 ICU-M22) Document 05/06/19 07:00 WWD9817 (Rec: 05/06/19 07:01 NUI2669 ICU-C06) Document 05/06/19 07:07 [id number] (Rec: 05/06/19 07:07 [id number] ICU-C06) Document 05/06/19 08:29 KSN1294 (Rec: 05/06/19 08:29 SCX2088 ICU-C06) Document 05/06/19 09:38 [id number] (Rec: 05/06/19 09:38 [id number] ICU-C06) Intake and Output Start: 05/06/19 10: 57 Freq: DAILY@0600,1400,2200 Status: Active Protocol: Created 05/06/19 10:57 [id number] (Rec: 05/06/19 10:57 [id number] ICU-C06) Document 05/06/19 14:00 [id number] (Rec: 05/06/19 14:32 HMT3985 TELE-C07) Document 05/06/19 22:00 QAU7138 (Rec: 05/06/19 22:17 DBU0494 TELE-C09) Document 05/07/19 05:15 AOK9154 (Rec: 05/07/19 05:16 HYB4774 TELE-M21) Document 05/07/19 14:00 [id number] (Rec: 05/07/19 14:25 DMB1919 TELE-C09) Document 05/07/19 22:00 [id number] (Rec: 05/07/19 22:25 [id number] TELE-C09) Document 05/08/19 06:00 [id number] (Rec: 05/08/19 06:07 [id number] TELE-C09) - Physical Exam General: No Cyanosis, No Anemia, No Jaundice, No Clubbing Lungs and Chest: Yes: Chest Expansion Full, Chest Expansion Symetrica, Percussion Note Resonant, Vessicular Breath Sounds. No: Crackles, Wheezes Heart Rate and Rhythm: Regular Additional Cardiovascular: Yes: Normal Heart Sounds. No: Heart Murmur, Pedal Edema Abdominal Exam: Yes: Soft, Bowel Sounds Present. No: Distention, Abdominal Mass , Abdominal Tenderness - Extremities Cranial Nerves II-XII Intact: Yes Limbs: Normal Power, Normal Tone, Abnormal Coordination - right finger nose - look at 3rd finger. Left normal - Neuro Orientation: Person Psychiatric: Normal Speech: Normal Assessment - Problem List Assessment: Patient Problems Intraparenchymal hemorrhage of brain (Acute) B12 deficiency (Chronic) BPH without urinary obstruction (Chronic) DVT prophylaxis (Chronic) Essential hypertension (Chronic) Full code status (Chronic) Hyperlipidemia (Chronic) Kyphosis (acquired) (postural) (Chronic) Low back pain (Chronic) Rapidly progressive dementia (Chronic) Plan: Intraparenchymal hemorrhage of brain (Acute) He remains stable from a neurological point of view. Rapidly progressive dementia (Chronic) This remains his major comorbidity Secondary diagnoses B12 deficiency (Chronic) Ongoing problem BPH without urinary obstruction (Chronic) DVT prophylaxis (Chronic) Essential hypertension (Chronic) Full code status (Chronic) Hyperlipidemia (Chronic) Kyphosis (acquired) (postural) (Chronic) Low back pain (Chronic) I called [facility] to speak to Gracie Misha ([phone]). They have lived at [facility] since February. She thinks he would be better home and is ready for him. I think this is a safe plan of discharge.
[2019-05-08 09:57] VITALS: BP 150/82
--- NOTE | 2019-05-08 11:44 | DS ---
CC: Dr. Sha Wesley; Dr. Walt Christensen; Natalya. * DISCHARGE SUMMARY: DATE OF ADMISSION: 05/04/19. DATE OF DISCHARGE: 05/08/19. DISCHARGE DIAGNOSIS: Left parietal lobe intracerebral hemorrhage. COMORBIDITIES: 1. Altered mental state. 2. Initial elevation of blood pressure. SECONDARY DIAGNOSES: 1. Alzheimer's dementia. 2. 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 3. Benign prostatic hyperplasia. 4. Essential hypertension. 5. Hyperlipidemia. 6. Kyphosis. 7. Low back pain. CONDITION ON DAY OF DISCHARGE: Fair. DISPOSITION: Home to [facility] at [facility]. HISTORY: Wan Cabral is an 83-year-old right-handed white male. 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 His presentation is documented in ALVIN Calzada's detailed admitting history and physical. Wan Cabral has had a rapidly progressive dementia, which is likely Alzheimer's plus B12 deficiency. The night before admission, he was noted to have worsening of his mental state, level of alertness and gait. He had more problems with walking. The morning of admission, he had a fall and head injury is not known. He was taken directly to the emergency room where he was found to have a left parietal lobe intraparenchymal hemorrhage. PHYSICAL EXAMINATION: In the emergency room, temperature 98.5, pulse 72, respirations 16, oxygen saturation 96%, blood pressure 145/83. Neurological Evaluation: Visual loss to the right side. No cranial nerve deficits. Diffusely weak. No focal deficits. Fasciculations in both upper arms with some muscle wasting. INITIAL INVESTIGATIONS/LABORATORY DATA: White count 9.4, hemoglobin 14.9, platelets 208,000. Sodium 138, potassium 4.1, chloride 103, bicarb 29, anion gap 5, BUN 16, creatinine 0.72. Glucose 114, lactic acid 0.9, calcium 9.6, magnesium 2.1, bili 1.0, normal LFTs, ammonia 31. CK 175, troponin I 0.00. TSH normal EKG: Normal sinus rhythm. Chest x-ray; no acute cardiopulmonary abnormality. CT scan of the brain: left intracerebral hemorrhage 4.8 x 4.8 x 3.[address] scan; no fracture. Lumbar spine x-ray; no fracture. Thoracic spine x-ray; no fracture. MRI of brain: 4.1 cm area intraparenchymal hemorrhage within the left parietal lobe, underlying mass could not be excluded. Small to moderate degree of intraventricular hemorrhage. Trace foci of subarachnoid hemorrhage. INITIAL IMPRESSION: Intraparenchymal hemorrhage, possibly posttraumatic. He was placed in the ICU for observation. He was seen in consultation by Dr. Sha Wesley, who followed him during the hospital care. The impression was altered mental status with CT scan consistent with a left occipital parietal intracranial hemorrhage. Considered the possibility with amyloid angiopathy. Suggested conservative treatment. INVESTIGATIONS: Urinalysis was negative. Imaging: He had serial CT scans 05/05/19, grossly unchanged CT scan of brain and likewise on 05/06/19. HOSPITAL COURSE: He had marked improvement of his mental alertness during the first 24 hours in the hospital. Remainder of his stay, he was alert. He was not oriented aside from person and was not able to give an account of himself. He had signs of mild short-term memory problems. His mobility was good. On the penultimate day in the hospital, I walked him from his room alf across the [place] with the walker. On the return, he waled without the walker. Romberg' s sign was negative. On the day of discharge, he is feeling well. He is alert, conversational, but disoriented and unable to give an account of himself. He denies any pain or physical discomfort or distress. PHYSICAL EXAM ON THE DAY OF DISCHARGE: Temperature 98.5, heart rate 77, respirations 20, oxygen saturation on room air 97%, blood pressure 139/67. He has no cyanosis, anemia, jaundice, clubbing or lymphadenopathy. He is in no acute distress. He is warm and well perfused. Cardiovascular System: Pulse regular. Normal character and volume. Heart sounds are normal. No added sounds or murmurs. No pedal edema. Respiratory System: Chest expansion full and symmetrical. Percussion note was resonant. Breath sounds vesicular and without crackles or wheezes. Abdomen: No distention, masses, tenderness, or organomegaly. Nervous Systems: He has conjugate eye movements. Some problems with upgaze. Cranial nerves II through XII intact. Speech normal. Arms and legs full power. Normal tone. Coordination; left finger nose normal, right finger nose he has problems with selecting his target, aiming for my third finger instead of my index finger. ASSESSMENT AND PLAN: 1. Left parieto-occipital intracranial hemorrhage. This appears to be stable. The underlying cause is not clear. It may have been traumatic; however, there was no clear reported head injury when he fell. He also has some history of hypertension. He is not on anticoagulation. Management is conservative. He will require some physical therapy. We will keep him off aspirin and other blood thinners. 2. Rapidly progressive dementia. This is his major issue at the present time. Does not appear to be markedly worsened by this stroke. 3. 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 4. Hypertension. I will treat this as an outpatient. 5. Hyperlipidemia. I will hold any new antilipid agents for the moment. 6. Low back pain. This does not seem to be a problem on this occasion. DISCHARGE MEDICATIONS: 1. Donepezil 10 mg daily. 2. Cyanocobalamin 1000 mcg IM once a month. 3. Acetaminophen 1000 mg every 4 hours as needed. [id number]/[facility] #: [id number] MTDD
== END 2019-05-08 11:16 | disposition home health service (06) | DRG 64 ==
LOC: ED 10:53 → ICU 13:52 → OBSVTOIN 05-05 16:00 → MEDTELE 05-06 12:08
PROVIDERS: ADMIT Internal Medicine; ATTEND Internal Medicine
DX: I61.1 Nontraumatic intracerebral hemorrhage in hemisphere, cortical (principal); G93.6 Cerebral edema; G30.9 Alzheimer's disease, unspecified; F02.80 Dementia in other diseases classified elsewhere, unspecified severity, without behavioral disturbance, psychotic disturbance, mood disturbance, and anxiety; D51.0 Vitamin B12 deficiency anemia due to intrinsic factor deficiency; N40.0 Benign prostatic hyperplasia without lower urinary tract symptoms; I10 Essential (primary) hypertension; E78.5 Hyperlipidemia, unspecified; M40.00 Postural kyphosis, site unspecified; M54.5 Low back pain; H54.61 Unqualified visual loss, right eye, normal vision left eye; W18.30XA Fall on same level, unspecified, initial encounter; Z80.3 Family history of malignant neoplasm of breast; Z79.1 Long term (current) use of non-steroidal anti-inflammatories (NSAID); Z79.899 Other long term (current) drug therapy; Z82.49 Family history of ischemic heart disease and other diseases of the circulatory system; Z82.5 Family history of asthma and other chronic lower respiratory diseases; Y92.031 Bathroom in apartment as the place of occurrence of the external cause
CPT/HCPCS: 36415; 70450; 70553; 71045; 72070; 72100; 72125; 80048; 80053; 80307; 80320; 80329; 81003; 82140; 82550; 82607; 83605; 83735; 84443; 84484; 85025; 85610; 85730; 87641; 90686; 93005; 95819; 96365; 96375; 99285; A9270-GY; A9579; G0378; G0480; G8978-GP-CK; G8979-GP-CI; J0360; J1953

== ENCOUNTER 2019-06-22 14:48 | Inpatient (IN) | payer MEDICARE, OTHER ==
--- NOTE | 2019-06-22 15:49 | ED ---
Respiratory - HPI Summary HPI Summary: The patient is an 83 y/o M presenting to [facility] accompanied by family with a chief complaint of increasing decline in health over the last month with a persistent cough and dysphagia. He reports that he has been coughing continuously and has seen his PCP Dr. Rubio, who prescribed him azithromycin. Additionally, hes been experiencing dysphagia, SOB, and decreased oral intake that has also been worsening recently. He denies any fevers or vomiting. He is not in any pain now. He depends on others for his life activities. It is also noted that he had an episode a year ago where [place] was out of the country and came back with increased confusion and was then diagnosed with stroke. PMHx: left parenchymal bleed, TIA. Nonsmoker, no EtOH, no substance use. Medications reviewed. Allergies noted. Patient unable to provide full history, provided history; Level 5 Caveat secondary to disorientation. 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 - Hx From Patient Unobtainable Due To: Other - disorientation Onset/Duration: Gradual Onset, Lasting Weeks - one month, Still Present Initial Severity: Mild Current Severity: Moderate Pain Intensity: 0 Character: Cough (Nonproductive) Sputum Amount: None Aggravating Factor(s): Nothing Alleviating Factor(s): Nothing Associated Signs and Symptoms: SOB - Allergy/Home Medications Allergies/Adverse Reactions: Allergies Allergy/AdvReac Type Severity Reaction Status Date / Time No Known Allergies Allergy Verified 06/22/19 14:54 PMH/Surg Hx/FS Hx/Imm Hx Endocrine/Hematology History: Denies: Hx Diabetes, Hx Anemia Cardiovascular History: Denies: Hx Hypertension, Hx Pacemaker/ICD GI History: Denies: Hx Jaundice History: Denies: Hx Dialysis, Hx Renal Disease Sensory History: Reports: Hx Cataracts - BILATERAL, Hx Contacts or Glasses - GLASSES Denies: Hx Hearing Aid Opthamlomology History: Reports: Hx Cataracts - BILATERAL, Hx Contacts or Glasses - GLASSES Neurological History: Reports: Hx Transient Ischemic Attacks (TIA), Other Neuro Impairments/Disorders - left parenchymal bleed Denies: Hx Headaches, Hx Seizures Psychiatric History: Denies: Hx Panic Disorder - Surgical History Surgical History: Yes Surgery Procedure, Year, and Place: APPENDIX. SKIN TUMORS REMOVED CHILD Hx Anesthesia Reactions: No Infectious Disease History: No Infectious Disease History: Reports: Hx Hepatitis - AT AGE 13 Denies: Traveled Outside the [place] in Last 30 Days - Family History Known Family History: Negative: Diabetes - Social History Alcohol Use: None Hx Substance Use: No Substance Use Type: Reports: None Hx Tobacco Use: No Smoking Status (MU): Never Smoked Tobacco Review of Systems Negative: Fever Positive: Other - dysphagia Positive: Shortness Of Breath, Cough Positive: Other - decreased oral intake. Negative: Vomiting All Other Systems Reviewed And Are Negative: No - Comments Additional Review of Systems Comments: Level 5 Caveat secondary to disorientation Physical Exam - Summary Physical Exam Summary: Constitutional: Elderly, Cachectic, Alert. (-) Distressed. Dry mucous membranes. Skin: Warm, Dry HENT: Normocephalic; Atraumatic Eyes: Conjunctiva normal Neck: Musculoskeletal ROM normal neck. (-) JVD, (-) Stridor, (-) Nuchal rigidity Cardio: Rhythm regular, tachycardic, Heart sounds normal; Intact distal pulses; Radial pulses are 2+ and symmetric. (-) Murmur Pulmonary/Chest wall: Effort normal. Bilateral rhonchi of the lower lobes. Mild inc WOB, (-) Wheezes, (-) Rales Abd: Soft, (-) tenderness, (-) Distension, (-) Guarding, (-) Rebound Musculoskeletal: (-) Edema Lymph: (-) Cervical adenopathy Neuro: Alert, Oriented to person and place, not time. Psych: Cooperative Triage Information Reviewed: Yes Vital Signs On Initial Exam: Initial Vitals Temp Pulse Resp BP Pulse Ox 97.1 F 92 20 138/54 90 06/22/19 14:53 06/22/19 14:53 06/22/19 14:53 06/22/19 14:53 06/22/19 14:53 Vital Signs Reviewed: Yes Completion Of Physical Exam Limited Due To: Level 5 - secondary to disorientation Procedures - Sedation Patient Received Moderate/Deep Sedation with Procedure: No Diagnostics - Vital Signs Vital Signs Temp Pulse Resp BP Pulse Ox 06/22/19 14:53 97.1 F 92 20 138/54 90 - Laboratory Result Diagrams: 06/22/19 16:35 06/22/19 16:35 Lab Statement: Any lab studies that have been ordered have been reviewed, and results considered in the medical decision making process. - Radiology CXR Radiology Interpretation Completed By: Radiologist Summary of Radiographic Findings: Bibasilar airspace opacification is concerning for aspiration pneumonia/pneumonitis. ED physician has reviewed this report. - EKG 1544 Cardiac Rate: NL - 89 BPM EKG Rhythm: Sinus Rhythm Summary of EKG Findings: An EKG at 1544 reveals normal sinus rhythm at 89 BPM, nml axis, nml intervals. No STEMI. No acute changes. ED physician has reviewed and interpreted this EKG. Disposition - Course Course Of Treatment: 83-year-old male with a history of progressive dementia, presents with concern for aspiration pneumonia. His vital exam with a cachectic elderly male, increased work of breathing and dry mucous membranes. Hypoxic on room air, place and nasal cannula. Labs are notable for leukocytosis , chest x-ray with bilateral infiltrates concerning for aspiration. Patient was placed on Levaquin. Patient given IV fluids for dehydration. Will admit to hospitalist service for pneumonia and failure to thrive. - Diagnoses Provider Diagnoses: Aspiration into airway - Physician Notifications Discussed Care Of Patient With: Concepcion Momin - hospitalist Time Discussed With Above Provider: 17:40 Instructed by Provider To: Admit As Observation - I spoke with Dr. Momin concerning the patient's case, and she accepts the patient for admission. Discharge ED - Sign-Out/Discharge Documenting (check all that apply): Patient Departure - Patient accepted for admission by Dr. Momin. - Discharge Plan Condition: Fair Disposition: ADMITTED TO [facility] - Billing Disposition and Condition Condition: FAIR Disposition: Admitted to [facility] - Attestation Statements Document Initiated by Bharti: Yes Documenting Scribe: Ursula Calix Provider For Whom Bharti is Documenting (Include Credential): Dr. Tenzin Murphy MD Scribe Attestation: Ursula Cotton scribed for Dr. Tenzin Murphy MD on 06/22/19 at 2211. Scribe Documentation Reviewed: Yes Provider Attestation: The documentation as recorded by the Ursula mcintyre accurately reflects the service I personally performed and the decisions made by me, Dr. Tenzin Murphy MD Status of Scribe Document: Viewed
[2019-06-22] MEDS ORDERED: Levofloxacin 750 MG IVPREMIX(* 750 MG/150 ML BAG IVPB ONE (16:38)
[2019-06-22 16:44] LABS: ABS Lymphocytes 0.3 10^3/ul (1.0-4.8); ABS Monocytes 0.7 10^3/ul (0-0.8); ABS Neutrophils 15.5 10^3/ul (1.5-7.7); Hematocrit 43 % (42-52); Hemoglobin 14.7 g/dL (14.0-18.0); Lymphocyte % 1.7 %; Mean Corpuscular HGB Conc 35 g/dL (31-36); Mean Corpuscular Hemoglobin 33 pg (27-31); Mean Corpuscular Volume 94 fL (80-94); Mean Platelet Volume 7.2 fL (7.4-10.4); Platelet Count 259 10^3/uL (150-450); Red Blood Count 4.51 10^6 /uL (4.18-5.48); Red Cell Distribution Width 13 % (10-15); White Blood Count 16.6 10^3/uL (3.5-10.8)
[2019-06-22 17:09] LABS: Albumin 4.1 g/dL (3.2-5.2); Albumin/Globulin Ratio 1.5 (1-3); BUN/Creatinine Ratio 37.9 (8-20); Calcium 9.9 mg/dL (8.6-10.3); EGFR African American 138.8 (>60); EGFR Non-African American 114.7 (>60); Globulin 2.8 g/dL (2-4); Potassium 4.1 mmol/L (3.5-5.0); Total Bilirubin 1.6 mg/dL (0.2-1.0); Total Protein 6.9 g/dL (6.4-8.9)
[2019-06-22 17:10] LABS: Troponin I 0.01 ng/mL (<0.04)
[2019-06-22] MEDS ORDERED: Acetaminophen TAB* 325 MG PO PRN (19:07)
[2019-06-22] MEDS ORDERED: NS 0.9% 1000 ML** 1,000 ML IV SCH (19:15)
--- OUTSIDE RECORDS SUMMARY | 2019-06-22 19:27 | XMS REPORT | Continuity of Care Document ---
:1935 External Reference #:[id number] Author Name Koko Mckeon N.P. 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 Onset: 07/29/2018 Altered mental status Walt Christensen M.D. Onset: 07/29/2018 Muscle weakness Walt Christensen M.D. Onset: 07/29/2018 Social History Type Date Description Comments Sex Unknown Tobacco Use Start: Unknown Never Smoked Cigarettes Smoking Status Reviewed: 05/30/19 Never Smoked Cigarettes ETOH Use Occasionally consumes alcohol Tobacco Use Start: Unknown Patient has never smoked Recreational Drug Use Denies Drug Use Exercise Type/Frequency Does not exercise Allergies, Adverse Reactions, Alerts Description No Known [...] Available Vital Signs Date Vital Result Comment 05/30/2019 9:38am Height 68 inches 5'8" Weight 123.00 lb Heart Rate 78 /min BP Systolic Sitting 116 mmHg BP Diastolic Sitting 66 mmHg Respiratory Rate 15 /min BMI (Body Mass Index) 18.7 kg/m2 04/03/2019 11:51am Height 68 inches 5'8" Weight 140.00 lb Heart Rate 74 /min BP Systolic 118 mmHg BP Diastolic 82 mmHg BMI (Body Mass Index) 21.3 kg/m2 Results Description No Information Available Procedures Description No Information Available Medical Devices Description No Information Available Encounters Type Date Location Provider Dx Diagnosis Office Visit 05/06/2019 [facility] Kerri Ramon, [employer]PECTOR I61.9 Nontraumatic 10:07a Assoc,[facility] intracerebral Hospitalists hemorrhage, unspecified Office Visit 05/05/2019 [facility] Monica Madsenfield I61.9 Nontraumatic 10:06a Assoc,pc [place], F[employer]NA[employer] STOCK INSPECTOR intracerebral Hospitalists hemorrhage, unspecified Office Visit 05/04/2019 [facility] Medardo Hu, I61.9 Nontraumatic 10:06a Assoc,pc [place] intracerebral Hospitalists hemorrhage, unspecified Office Visit 04/03/2019 [facility] Walt Christensen, R41.3 Other amnesia 11:45a [facility] Assessments Date Code Description Provider 05/30/2019 R41.3 Other amnesia Koko Mckeon, N.P. 05/30/2019 R41.82 Altered mental status, unspecified Koko Mckeon, N.P. 05/30/2019 I61.9 Nontraumatic intracerebral hemorrhage, Koko Mckeon, N.P. unspecified 05/30/2019 R63.4 Abnormal weight loss Koko Mckeon, N.P. 05/06/2019 I61.9 Nontraumatic intracerebral hemorrhage, Kerricami Navarro, FURNACE STOCK INSPECTOR unspecified 05/05/2019 I61.9 Nontraumatic intracerebral hemorrhage, Monica Eaton Briseyda, FURNACE STOCK INSPECTOR unspecified 05/04/2019 I61.9 Nontraumatic intracerebral hemorrhage, ALVIN Calzada unspecified 04/03/2019 R41.3 Other amnesia Walt Christensen M.D. Plan of Treatment Future Appointment(s):07/04/2019 12:00 pm - Walt Christensen M.D. at [facility]05/30/2019 - Koko Mckeon, N.P.R41.3 Other amnesiaFollow up:[address] King cortez to kjlxokasJ18.82 Altered mental status , saembukzwtiF46.9 Nontraumatic intracerebral hemorrhage, hsmugetgcucC44.4 Abnormal weight loss Functional Status Description No Information Available Mental Status Description No Information Available Referrals Description No Information Available
[2019-06-22] MEDS ORDERED: Piperacillin/Tazobac ADVAN(*) 3.375 GM in NS 0.9% 100 ML* 100 ML IVPB ONE (19:43)
[2019-06-22] MEDS ORDERED: Zosyn per Pharmacy* NOTE FOLLOW UP SCH (20:00)
[2019-06-22] MEDS ORDERED: Donepezil TAB* 5 MG PO SCH (21:00)
[2019-06-22 23:34] LABS: Urine Appearance Cloudy; Urine Bacteria Absent (Absent); Urine Bilirubin Negative (Negative); Urine Blood 3+ (Negative); Urine Color Yellow; Urine Glucose Negative (Negative); Urine Ketones Trace (Negative); Urine Nitrite Negative (Negative); Urine Protein 1+(30 mg/dL) (Negative); Urine Red Blood Cell 3+(>10/hpf) (Absent); Urine Specific Gravity 1.026 (1.010-1.030); Urine Squamous Epithelial Cell Present (Absent); Urine Urobilinogen Negative (Negative); Urine White Blood Cell Absent (Absent)
--- NOTE | 2019-06-22 23:43 | HP ---
CC: Dr. Rubio * ADMISSION HISTORY AND PHYSICAL: DATE OF ADMISSION: 06/22/19 PROVIDER: Marilee Nagy NP. PRIMARY CARE PROVIDER: Dr. Celestine Rubio. ATTENDING PHYSICIAN WHILE IN THE HOSPITAL: Dr. Concepcion Bryant * (dictated by Marilee Nagy NP). CHIEF COMPLAINT: Cough and shortness of breath. HISTORY OF PRESENT ILLNESS: Mr. Iniguez is an 83-year-old male with past medical history significant for rapidly progressive dementia, history of vitamin B12 deficiency, BPH, who presented to the emergency room with the complaints of progressively worsening shortness of breath and weakness. The patient is confused at baseline. The patient is able to respond to his name, but is confused to place, time, and situation. History of present illness was obtained from the patient's via phone. The reports the patient has had progressively worsening cough that started approximately 1 week ago and today, his cough became worse to the point that he was unable to eat. He has been getting progressively weaker and the felt the patient needed further medical attention, so he was brought to the emergency room for further evaluation. The denies the patient having any fever or chills. She does report worsening confusion x1 week. Denies any nausea, vomiting, diarrhea, or abdominal pain. She denies any chest pain. The patient reports no when asked if he has chest pain. The patient denies any changes in his vision. Denies any difficulty swallowing. Due to his symptoms of progressively worsening shortness of breath, cough, and decreased appetite and increased weakness, the patient was brought to the emergency room for further evaluation. While in the emergency room, the patient had routine lab work drawn. He was found to have leukocytosis with a white count of 16.6. He did meet sepsis criteria with leukocytosis and tachycardia with a known source of pneumonia. Given his new diagnosis of pneumonia and sepsis, Hospital Medicine was asked to see and evaluate for admission. PAST MEDICAL HISTORY: Significant for vitamin B12 deficiency, dementia, hyperlipidemia, and BPH. PAST SURGICAL HISTORY: Appendectomy, tonsillectomy. HOME MEDICATIONS: Include Tylenol 1000 mg every 4 hours as needed, vitamin B12 at 1000 mcg IM monthly, donepezil 10 mg p.o. daily. ALLERGIES: No known drug allergies. FAMILY HISTORY: Father had emphysema and high blood pressure. Mother had high blood pressure and breast cancer, at the age of 87 from breast cancer. SOCIAL HISTORY: The patient is a lifelong nonsmoker. does report that he drinks 1 glass of wine daily. Denies any illicit drug use. 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 does report that he was working and traveling around the [place] until approximately 1 year ago when he had an episode on his way home from a conference where he became confused and got lost in the airport. Since then, the patient has had progressively worsening dementia. The patient is . His surrogate decision maker in the event he is unable to make his own decisions is Gracie Cabral, his . He is a DNR. The MOLST form was completed and placed on the chart. REVIEW OF SYSTEMS: A 14-point review of systems was completed. All pertinent positives were mentioned in the HPI, otherwise, were negative. PHYSICAL EXAMINATION GENERAL: At this time, Mr. Cabral is an 83-year-old man, who is resting in a stretcher in the emergency room. He does have labored respirations. He is confused. VITAL SIGNS: Blood pressure 132/69, heart rate 108, respirations are 26, O2 saturation is 94% on 5 L nasal cannula, temperature was 97.1. HEENT: Head is atraumatic and normocephalic. Eyes: EOMs are intact. Sclerae are anicteric and not pale. Oral mucosa appeared to be moist. NECK: Supple. LUNGS: Crackles in the bases bilat. No wheezes, rales. CARDIAC: S1 and S2. No murmurs, rubs, or gallops. ABDOMEN: Soft and nontender. Bowel sounds are present x4. NEUROLOGIC: The patient is alert, oriented to name, confused to place, time, and situation. He has no gross focal deficits noted. SKIN: Intact. DIAGNOSTIC STUDIES/LAB DATA: WBCs are 16.6, RBCs 4.51, hemoglobin 14.7, hematocrit 43, platelet count 259. Sodium 145, potassium 4.1, chloride 104, carbon dioxide is 33, anion gap is 8, BUN is 25, creatinine 0.66, calcium 9.9. T. bili is 1.60, AST is 26, ALT is 43, alkaline phosphatase is 48. Troponin is 0.01. Urinalysis is currently pending. Blood cultures are currently pending. Sputum is pending. Urine for legionella and Strep pneumoniae are currently pending. The patient did have a chest x-ray. Radiologist's impression: Bibasilar air- space opacification concerning for aspiration pneumonia versus pneumonitis. He had an electrocardiogram, which showed sinus rhythm at a rate of 89. ASSESSMENT AND PLAN: Mr. Cabral is an 83-year-old male with past medical history significant for vitamin B12 deficiency, dementia, BPH, who was brought to the emergency room with complaints of cough and worsening shortness of breath and weakness. He was found to meet sepsis criteria with underlying pneumonia. He will be admitted to the ICU with: 1. Sepsis related to underlying pneumonia. The patient is currently meeting sepsis criteria with leukocytosis, tachycardia, tachypnea with underlying source pneumonia. At this time, the patient is tachypneic requiring oxygen at 5 L and continues to have mild respiratory distress. I am going to place him in the ICU on Vapotherm. He can have nebulizers albuterol every 4 hours as needed for wheezing and increasing shortness of breath. He was given Levaquin in the emergency room. I am going to continue him on Zosyn to cover for aspiration pneumonia. I will also start him on azithromycin tomorrow to cover community- acquired pneumonia. I will order a swallow evaluation as the patient had a recent cerebrovascular accident, weak cough and soft horse voice.. The does report the patient has had no episodes of choking at home on his food or liquids, but x-ray is concerning for aspiration. If the patient passes his swallow evaluation, then we will consider converting antibiotics to azithromycin and ceftriaxone and treat him for community acquired pneumonia. He currently has blood cultures and urine that are pending and I will send urine for Strep pneumoniae and legionella. A sputum culture has also been ordered. 2. History of intraparenchymal hemorrhage. 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 At this time, the patient has no further neurological deficits. We will continue to monitor the patient. I will hold off on any anticoagulation, any chemical DVT prophylaxis due to his recent intraparenchymal hemorrhage. 3. Dementia. He will continue on donepezil 10 mg p.o. daily. 4. FEN. He can have a regular unrestricted diet. 5. Disposition. The patient will be placed in the ICU. 6. Code status. He is a DNR. TIME SPENT: Time spent on this admission was 60 minutes, greater than half that time was spent at the bedside reviewing events leading thus far to his hospitalization, performing physical exam, and reviewing my plan of care. I have discussed this with my attending, Dr. Concepcion Bryant; she is in agreement with my plan. MARILEE NAGY, MARGIN CLERK [id number]/[facility] #: [id number] [place]
[2019-06-23] MEDS ORDERED: Haloperidol INJ IV/IM* 5 MG/ML AMP IV SLOW PU ONE (03:02)
[2019-06-23] MEDS ORDERED: Haloperidol INJ IV/IM* 5 MG/ML AMP ONE (03:02)
[2019-06-23] MEDS: ZOSYN 3.375 GM Q8H per EXTENDED INFUSION IVPB SCH ×4 (03:08→08:18)
[2019-06-23 05:01] LABS: ABS Lymphocytes 0.7 10^3/ul (1.0-4.8); ABS Monocytes 0.6 10^3/ul (0-0.8); ABS Neutrophils 13.5 10^3/ul (1.5-7.7); Hematocrit 39 % (42-52); Hemoglobin 13.4 g/dL (14.0-18.0); Lymphocyte % 4.4 %; Mean Corpuscular HGB Conc 34 g/dL (31-36); Mean Corpuscular Hemoglobin 32 pg (27-31); Mean Corpuscular Volume 94 fL (80-94); Mean Platelet Volume 7.7 fL (7.4-10.4); Platelet Count 239 10^3/uL (150-450); Red Blood Count 4.15 10^6 /uL (4.18-5.48); Red Cell Distribution Width 14 % (10-15); White Blood Count 14.8 10^3/uL (3.5-10.8)
[2019-06-23 05:15] LABS: BUN/Creatinine Ratio 34.4 (8-20); Calcium 9.5 mg/dL (8.6-10.3); EGFR African American 143.8 (>60); EGFR Non-African American 118.9 (>60); Potassium 3.7 mmol/L (3.5-5.0)
[2019-06-23 09:54] LABS: Magnesium 1.9 mg/dL (1.9-2.7); Phosphorus 2.9 mg/dL (2.5-5.0)
[2019-06-23] MEDS ORDERED: D5W 1/2 NS KCl 20 Meq 1000 ML* 1,000 ML IV SCH (12:00)
[2019-06-23] MEDS ORDERED: LORazepam TAB(*) 0.5 MG SL PRN (16:28)
[2019-06-23] MEDS ORDERED: Atropine 1% (ORAL/SL)* 15 ML BTL SL PRN (16:29)
[2019-06-23] MEDS ORDERED: Morphine ORAL CONCENTRATE* 5 MG/0.25 ML ORAL.SYRIN SL PRN (16:29)
--- NOTE | 2019-06-23 16:42 | PN ---
Progress Note - Progress Note Date of Service: 06/23/19 Note: I spoke with the patient's at length about his condition, prognosis, and treatment. 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 Even if he rallied from this episode (which I think is very unlikely), he is at risk for continued episodes. He has lost much weight and lost his appetite. ST recommended NPO. His agreed to comfort measures only, including cessation of IVF. I have changed him to comfort measures.
[2019-06-23 17:17] VITALS: BP 110/36
[2019-06-23] MEDS ORDERED: Azithromycin 500 mg/250 ml NS 500 MG/250 ML BAG IVPB SCH (20:00)
--- NOTE | 2019-07-07 00:12 | DS ---
CC: Dr. Celestine Rubio * DISCHARGE SUMMARY: DATE OF ADMISSION: DATE OF DISCHARGE: 06/23/19 HOSPITAL COURSE: This 83-year-old man presented with cough and shortness of breath. He has a history of rapidly progressing dementia. The patient likely has aspiration and swallowing disorder. He was evaluated by the speech therapist and n.p.o. was recommended. The family's history was consistent with this. He had also showed significant weight loss over the past six months while living at [facility]. The radiologic interpretation of his chest x-ray was concerning for aspiration pneumonia as well. After discussion with the patient's , she agreed to comfort measures including cessation of intravenous fluids. He was given medication to relieve his discomfort and quietly later that day. FINAL DIAGNOSES: 1. Aspiration pneumonia. 2. Dementia. [id number]/[facility] #: [id number] MTDD
== END 2019-06-23 17:40 | disposition expired | DRG 178 ==
LOC: ED 14:48 → ICU 19:44 → MED 06-23 09:28
PROVIDERS: ADMIT Internal Medicine; ATTEND Internal Medicine
DX: J69.0 Pneumonitis due to inhalation of food and vomit (principal); R64 Cachexia; Z68.1 Body mass index [BMI] 19.9 or less, adult; F03.90 Unspecified dementia, unspecified severity, without behavioral disturbance, psychotic disturbance, mood disturbance, and anxiety; E78.5 Hyperlipidemia, unspecified; N40.0 Benign prostatic hyperplasia without lower urinary tract symptoms; Z66 Do not resuscitate; H26.9 Unspecified cataract; Z86.73 Personal history of transient ischemic attack (TIA), and cerebral infarction without residual deficits
CPT/HCPCS: 36415; 70450; 71046; 80048; 80053; 81003; 81015; 83735; 84100; 84484; 85025; 86140; 87040; 87641; 87899; 93005; 96365; 96366; 99285; J0456; J1630; J2543